=== PATIENT | male | born 1940 | race Caucasian/White ===

== ENCOUNTER 2016-09-03 15:46 | Emergency (ER) | payer OTHER, MEDICARE ==
[~2016-09-03] VITALS: Ht 180.3 cm; Wt 85.0 kg
[~2016-09-03 15:46] MED LIST: (None)3.5 GM OP; AMLODIPINE5 MG PO; AMOX/K CLAV875 M1 PO; AMOXICILLIN500 MG PO; ASPIRIN LOW DOS81 M2 PO; ATENOLOL50 MG PO; BACTRIM DS1 TAB PO; C 250 PO; CEPHALEXIN500 MG PO; CLEOCIN300 MG PO; FISH OIL1000 MG PO; FLEXERIL PO; GENTAMICIN15 ML/BTL OP; HYDROCHLOROT25 MG PO; INDOCIN25 MG PO; LIPITOR40 M1 PO; LOTRISONE CREAM15 GM EX; METOPROL TAR100 MG PO; MORPHINE SUL30 M3 PO; NAPROSYN500 MG PO; NORCO1 TA1 PO; ULTRAM50 M1 PO; ZESTRIL/PRINIV2.5 MG PO; ZESTRIL10 M1 PO; ZOHYDRO ER10 MG PO
[2016-09-03] MEDS ORDERED: METOPROL TAR25 M1 PO (17:15)
[2016-09-03 17:17] LABS: HEMOGLOBIN 14.9 g/dl (14.0-18.0); IMMATURE GRANULOCYTES 0.4 % (0.0-1.0); MEAN CELL VOLUME 83.7 fL CALC (80.0-100.0); MEAN CORPUSCULAR HGB 28.3 pG CALC (26.0-32.0); MEAN CORPUSCULAR HGB CONC 33.9 g/L CALC (32.0-36.0); NEUT# 4.79 thou/uL (1.82-7.42); RED BLOOD COUNT 5.26 mill/uL (4.70-6.10); RED CELL DISTRI WIDTH 15.9 % (11.5-15.5)
[2016-09-03] MEDS ORDERED: FISH OIL1000 MG PO (17:17)
[2016-09-03 17:32] LABS: ALBUMIN 4.2 g/dL (3.2-5.0); ALKALINE PHOSPHATASE 41 u/l (38-126); ANION GAP 16 (6-22 (CALC)); BILIRUBIN, TOTAL 0.6 mg/dL (0.0-1.4); BUN 13 mg/dL (8-23); BUN/CREATININE RATIO 13 (12-20 (CALC)); CARBON DIOXIDE 23 mmol/l (22-30); CHLORIDE 100 mmol/l (95-108); GFR > 60 ML/MIN (>=60 (CALC)); GFR FOR AFR.AMER. > 60 ML/MIN (>=60 (CALC)); GLUCOSE 83 mg/dL (82-115); POTASSIUM 4.4 mmol/l (3.5-5.1); SGOT/AST 42 u/l (19-48); SGPT/ALT 34 u/l (11-66); SODIUM 135 mmol/l (137-146); TOTAL PROTEIN 6.9 g/dL (6.3-8.2)
[2016-09-03] MEDS ORDERED: LEVAQUIN750 MG PO (17:43)
[2016-09-03] MEDS ORDERED: PREDNISONE50 MG PO (17:43)
[2016-09-03] MEDS ORDERED: TESSALON PER100 MG PO (17:43)
[2016-09-03] MEDS ORDERED: VENTOLIN HFA IN (17:43)
[2016-09-03 17:46] VITALS: BP 155/69
== END 2016-09-03 17:53 | disposition home or self-care (01) | DRG 203 ==
LOC: ED 15:46
PROVIDERS: Emergency Medicine
DX: J20.9 Acute bronchitis, unspecified (principal); I10 Essential (primary) hypertension; F43.10 Post-traumatic stress disorder, unspecified; Z95.2 Presence of prosthetic heart valve; G89.29 Other chronic pain; M54.9 Dorsalgia, unspecified

== ENCOUNTER 2018-05-31 13:54 | Emergency (ER) | payer MEDICARE ==
[~2018-05-31] VITALS: Ht 180.3 cm; Wt 80.9 kg
[~2018-05-31 13:54] MED LIST changes: +LEVAQUIN750 MG PO; +METOPROL TAR25 M1 PO; +PREDNISONE50 MG PO; +TESSALON PER100 MG PO; +VENTOLIN HFA IN
[2018-05-31] MEDS ORDERED: AMOX/K CLAV875 M1 PO (14:47)
[2018-05-31] MEDS ORDERED: FLOXIN OTIC0.3 % AU (14:47)
[2018-05-31 15:00] VITALS: BP 142/87
== END 2018-05-31 15:00 | disposition home or self-care (01) ==
LOC: ED 13:54
DX: H66.92 Otitis media, unspecified, left ear (principal); I10 Essential (primary) hypertension

== ENCOUNTER 2018-12-27 11:48 | Emergency (ER) | payer OTHER, MEDICARE ==
[~2018-12-27] VITALS: Ht 180.3 cm; Wt 85.0 kg
[~2018-12-27 11:48] MED LIST changes: +FLOXIN OTIC0.3 % AU
[2018-12-27] MEDS ORDERED: HYDRALAZINE10 M2 PO (12:05)
[2018-12-27] MEDS ORDERED: CEPHALEXIN500 M1 PO (14:27)
[2018-12-27] MEDS ORDERED: ROBITUSSIN AC10 ML PO (14:27)
[2018-12-27] MEDS ORDERED: CORTISPORIN OTI10 ML AU (14:31)
[2018-12-27 14:35] VITALS: BP 159/74
== END 2018-12-27 14:35 | disposition home or self-care (01) | DRG 153 ==
LOC: ED 11:48
DX: J06.9 Acute upper respiratory infection, unspecified (principal); M79.652 Pain in left thigh; I10 Essential (primary) hypertension; Z95.2 Presence of prosthetic heart valve

== ENCOUNTER 2019-01-14 11:04 | Emergency (ER) | payer OTHER, MEDICARE ==
[~2019-01-14] VITALS: Ht 180.3 cm; Wt 85.4 kg
[~2019-01-14 11:04] MED LIST changes: +CEPHALEXIN500 M1 PO; +CORTISPORIN OTI10 ML AU; +HYDRALAZINE10 M2 PO; +ROBITUSSIN AC10 ML PO
[2019-01-14] MEDS ORDERED: CHERATUSSIN PO (11:36)
[2019-01-14] MEDS ORDERED: DOXYCYC MONO100 M2 PO (11:36)
[2019-01-14] MEDS ORDERED: FLONASE AL50 MCG/ACT (11:36)
[2019-01-14 12:08] VITALS: BP 155/82
== END 2019-01-14 12:08 | disposition home or self-care (01) | DRG 153 ==
LOC: ED 11:04
DX: J06.9 Acute upper respiratory infection, unspecified (principal); I10 Essential (primary) hypertension; Z79.82 Long term (current) use of aspirin; Z95.2 Presence of prosthetic heart valve

== ENCOUNTER 2019-05-02 | Emergency (ER) | payer OTHER, MEDICARE ==
[~2019-05-02] MED LIST changes: +CHERATUSSIN PO; +DOXYCYC MONO100 M2 PO; +FLONASE AL50 MCG/ACT
[2019-05-02 02:36] LABS: ALBUMIN 4.6 g/dL (3.2-5.0); ALKALINE PHOSPHATASE 43 u/l (38-126); ANION GAP 14 (6-22 (CALC)); BUN 18 mg/dL (8-23); BUN/CREATININE RATIO 16 (12-20 (CALC)); CARBON DIOXIDE 23 mmol/l (22-30); CHLORIDE 102 mmol/l (95-108); CREATININE 1.1 mg/dL (0.7-1.3); GFR > 60 ML/MIN (>=60 (CALC)); GFR FOR AFR.AMER. > 60 ML/MIN (>=60 (CALC)); POTASSIUM 4.6 mmol/l (3.5-5.1); SGOT/AST 35 u/l (19-48); SODIUM 134 mmol/l (137-146); TOTAL PROTEIN 7.4 g/dL (6.3-8.2)
[2019-05-02 02:43] LABS: BARBITURATES NEGATIVE (NEGATIVE); COCAINE NEGATIVE (NEGATIVE); METHADONE NEGATIVE (NEGATIVE); OXCYCODONE NEGATIVE (NEGATIVE); TETRAHYDROCANNABIONOL NEGATIVE (NEGATIVE); TRICYLIC ANTIDEPRESSANTS NEGATIVE (NEGATIVE)
[2019-05-02 02:48] LABS: MYOGLOBIN 128 ng/mL (0 - 121)
[2019-05-02 02:49] LABS: URINE BILIRUBIN - DIPSTICK NEGATIVE (NEGATIVE); URINE BLOOD DIPSTICK TRACE-INTACT (NEGATIVE); URINE COLOR YELLOW; URINE GLUCOSE - DIPSTICK NEGATIVE (NEGATIVE); URINE KETONE NEGATIVE (NEGATIVE); URINE LEUK ESTERASE NEGATIVE (NEGATIVE); URINE NITRITE - DIPSTICK NEGATIVE (Negative); URINE PROTEIN - DIPSTICK 100 mg/dL (NEG-TRACE); URINE UROBILINOGEN - DIPSTICK 0.2 E.U./dL (0.2)
[2019-05-02 02:50] LABS: BILIRUBIN, TOTAL 0.9 mg/dL (0.0-1.4); HEMATOCRIT 49.6 % (39.0-50.0); HEMOGLOBIN 16.8 g/dl (14.0-18.0); IMMATURE GRANULOCYTES 0.4 % (0.0-5.0); MEAN CELL VOLUME 87.3 fL CALC (80.0-100.0); MEAN CORPUSCULAR HGB 29.6 pG CALC (26.0-32.0); MEAN CORPUSCULAR HGB CONC 33.9 g/L CALC (32.0-36.0); NEUT# 8.44 thou/uL (1.82-7.42); RED BLOOD COUNT 5.68 mill/uL (4.70-6.10); RED CELL DISTRI WIDTH 14.7 % (11.5-15.5)
[2019-05-02 02:54] LABS: URINE BACTERIA RARE hpf; URINE EPITHELIAL CELLS FEW EPI/hpf (0-FEW)
== END 2019-05-02 04:27 | disposition home or self-care (01) | DRG 305 ==
PROVIDERS: Emergency Medicine
DX: I10 Essential (primary) hypertension (principal); Z95.2 Presence of prosthetic heart valve

== ENCOUNTER 2020-09-22 18:23 | Emergency (ER) | payer OTHER, MEDICARE ==
[~2020-09-22] VITALS: Ht 180.3 cm; Wt 73.6 kg
[~2020-09-22 18:23] MED LIST changes: -HYDRALAZINE10 M2 PO; +HYDRALAZINE100 MG PO; +LISINOPRIL40 MG PO; -ZESTRIL10 M1 PO
[2020-09-22] MEDS ORDERED: ARIPIPRAZOLE5 MG PO (19:23)
[2020-09-22] MEDS ORDERED: CARVEDILOL6.25 MG PO (19:24)
[2020-09-22] MEDS ORDERED: DULOXETINE HCL30 MG PO (19:25)
[2020-09-22] MEDS ORDERED: SOD CHLORIDE1 G2 PO (19:26)
[2020-09-22] MEDS ORDERED: SOD CHLORIDE1 GM PO (19:27)
[2020-09-22 19:44] LABS: HEMATOCRIT 43.3 % (39.0-50.0); HEMOGLOBIN 14.2 g/dl (14.0-18.0); IMMATURE GRANULOCYTES 0.2 % (0.0-5.0); MEAN CELL VOLUME 83.9 fL CALC (80.0-100.0); MEAN CORPUSCULAR HGB 27.5 pG CALC (26.0-32.0); MEAN CORPUSCULAR HGB CONC 32.8 g/dL CAL (32.0-36.0); NEUT# 4.67 thou/uL (1.82-7.42); RED BLOOD COUNT 5.16 mill/uL (4.70-6.10); RED CELL DISTRI WIDTH 13.1 % (11.5-15.5)
[2020-09-22 19:51] LABS: ALBUMIN 3.8 g/dL (3.2-5.0); ALKALINE PHOSPHATASE 79 u/l (38-126); ANION GAP 13 (6-22 (CALC)); BILIRUBIN, TOTAL 0.4 mg/dL (0.0-1.4); BUN 23 mg/dL (8-23); BUN/CREATININE RATIO 26 (12-20 (CALC)); CARBON DIOXIDE 26 mmol/l (22-30); CHLORIDE 95 mmol/l (95-108); CREATININE 0.9 mg/dL (0.7-1.3); GFR > 60 ML/MIN (>=60 (CALC)); GFR FOR AFR.AMER. > 60 ML/MIN (>=60 (CALC)); LIPASE 132 u/l (23-300); MAGNESIUM 2.1 mg/dL (1.6-2.3); POTASSIUM 4.5 mmol/l (3.5-5.1); SGOT/AST 25 u/l (19-48); SODIUM 130 mmol/l (137-146)
[2020-09-22 20:21] LABS: TSH, 3RD GENERATION 1.67 uIU/mL (0.47 - 4.68)
[2020-09-22 20:22] LABS: ACT PARTIAL THROMBO TIME 31.9 SECONDS (20.0-32.5); PROTHROMBIN TIME 10.7 SECONDS (9.0-12.5)
[2020-09-22 21:10] LABS: URINE BILIRUBIN - DIPSTICK NEGATIVE (NEGATIVE); URINE BLOOD DIPSTICK NEGATIVE (NEGATIVE); URINE COLOR YELLOW; URINE GLUCOSE - DIPSTICK NEGATIVE (NEGATIVE); URINE KETONE NEGATIVE (NEGATIVE); URINE LEUK ESTERASE NEGATIVE (NEGATIVE); URINE PROTEIN - DIPSTICK 30 mg/dL (NEG-TRACE); URINE SPECIFIC GRAVITY >=1.030; URINE UROBILINOGEN - DIPSTICK 0.2 E.U./dL (0.2)
[2020-09-22 21:11] LABS: URINE NITRITE - DIPSTICK NEGATIVE (Negative)
[2020-09-22 21:12] LABS: URINE RBC 0-2 RBC/hpf (0-5); URINE WBC 0-2 WBC/hpf (0-5)
[2020-09-22 21:40] VITALS: BP 171/72
== END 2020-09-22 21:50 | disposition home or self-care (01) | DRG 641 ==
LOC: ED 18:23
PROVIDERS: Emergency Medicine
DX: E87.1 Hypo-osmolality and hyponatremia (principal); F19.239 Other psychoactive substance dependence with withdrawal, unspecified; R42 Dizziness and giddiness; I10 Essential (primary) hypertension; Z95.2 Presence of prosthetic heart valve; Z20.822 Contact with and (suspected) exposure to COVID-19

== ENCOUNTER 2020-10-01 13:38 | Emergency (ER) | payer OTHER, MEDICARE ==
[~2020-10-01] VITALS: Ht 180.3 cm; Wt 75.0 kg
[~2020-10-01 13:38] MED LIST changes: +ARIPIPRAZOLE5 MG PO; +CARVEDILOL6.25 MG PO; +DULOXETINE HCL30 MG PO; +SOD CHLORIDE1 G2 PO; +SOD CHLORIDE1 GM PO
[2020-10-01] MEDS ORDERED: LIDOCAINE HCL VIS2 % PO (15:10)
[2020-10-01 15:28] VITALS: BP 130/72
== END 2020-10-01 15:28 | disposition home or self-care (01) | DRG 153 ==
LOC: ED 13:38
PROC: 3E1B78Z Irrigation of Ear using Irrigating Substance, Via Natural or Artificial Opening (ICD-10-PCS; principal; 2020-10-01)
PROC: 3E1B78Z Irrigation of Ear using Irrigating Substance, Via Natural or Artificial Opening (ICD-10-PCS; 2020-10-01)
DX: J02.9 Acute pharyngitis, unspecified (principal); R05 Cough; H61.23 Impacted cerumen, bilateral; I10 Essential (primary) hypertension; Z95.2 Presence of prosthetic heart valve; Z20.822 Contact with and (suspected) exposure to COVID-19

== ENCOUNTER 2020-10-08 16:58 | Emergency (ER) | payer OTHER, MEDICARE ==
[~2020-10-08] VITALS: Ht 180.3 cm; Wt 80.0 kg
[~2020-10-08 16:58] MED LIST changes: +LIDOCAINE HCL VIS2 % PO
[2020-10-08 17:53] LABS: HEMATOCRIT 38.6 % (39.0-50.0); HEMOGLOBIN 12.7 g/dl (14.0-18.0); IMMATURE GRANULOCYTES 0.3 % (0.0-5.0); MEAN CELL VOLUME 83.5 fL CALC (80.0-100.0); MEAN CORPUSCULAR HGB 27.5 pG CALC (26.0-32.0); MEAN CORPUSCULAR HGB CONC 32.9 g/dL CAL (32.0-36.0); NEUT# 4.48 thou/uL (1.82-7.42); RED BLOOD COUNT 4.62 mill/uL (4.70-6.10); RED CELL DISTRI WIDTH 13.8 % (11.5-15.5)
[2020-10-08 18:07] LABS: ALBUMIN 3.6 g/dL (3.2-5.0); ALKALINE PHOSPHATASE 69 u/l (38-126); AMYLASE 55 u/l (30-110); ANION GAP 10 (6-22 (CALC)); BILIRUBIN, TOTAL 0.3 mg/dL (0.0-1.4); BUN 24 mg/dL (8-23); BUN/CREATININE RATIO 24 (12-20 (CALC)); CARBON DIOXIDE 29 mmol/l (22-30); CHLORIDE 94 mmol/l (95-108); GFR > 60 ML/MIN (>=60 (CALC)); GFR FOR AFR.AMER. > 60 ML/MIN (>=60 (CALC)); LIPASE 47 u/l (23-300); POTASSIUM 4.4 mmol/l (3.5-5.1); SGOT/AST 24 u/l (19-48); SODIUM 128 mmol/l (137-146); TOTAL PROTEIN 7.1 g/dL (6.3-8.2)
[2020-10-08 18:33] LABS: ACT PARTIAL THROMBO TIME 31.6 SECONDS (20.0-32.5); PROTHROMBIN TIME 10.8 SECONDS (9.0-12.5)
[2020-10-08] MEDS ORDERED: MIRALAX17 GM PO (20:36)
[2020-10-08] MEDS ORDERED: DOXYCYCL HYC100 MG PO (20:36)
[2020-10-08 21:10] VITALS: BP 135/69
== END 2020-10-08 21:10 | disposition home or self-care (01) | DRG 195 ==
LOC: ED 16:58
DX: J18.9 Pneumonia, unspecified organism (principal); K59.00 Constipation, unspecified; I10 Essential (primary) hypertension; Z95.2 Presence of prosthetic heart valve
CPT/HCPCS: Q9967

== ENCOUNTER 2020-10-22 04:20 | Emergency (ER) | payer OTHER, MEDICARE ==
[~2020-10-22 04:20] MED LIST changes: +DOXYCYCL HYC100 MG PO; +MIRALAX17 GM PO
[2020-10-22] MEDS ORDERED: TYLENOL # 31 TA1 PO (05:58)
[2020-10-22 06:08] VITALS: BP 159/78
== END 2020-10-22 06:34 | disposition home or self-care (01) | DRG 605 ==
LOC: ED 04:20
DX: S41.111A Laceration without foreign body of right upper arm, initial encounter (principal); S51.811A Laceration without foreign body of right forearm, initial encounter; I10 Essential (primary) hypertension; W10.9XXA Fall (on) (from) unspecified stairs and steps, initial encounter; Y92.009 Unspecified place in unspecified non-institutional (private) residence as the place of occurrence of the external cause; Z95.2 Presence of prosthetic heart valve

== ENCOUNTER 2020-10-24 13:33 | Emergency (ER) | payer OTHER, MEDICARE ==
[~2020-10-24 13:33] MED LIST changes: +TYLENOL # 31 TA1 PO
[2020-10-24 16:14] VITALS: BP 160/82
== END 2020-10-24 16:20 | disposition home or self-care (01) | DRG 605 ==
LOC: ED 13:33
DX: S41.111A Laceration without foreign body of right upper arm, initial encounter (principal); S51.811A Laceration without foreign body of right forearm, initial encounter; I10 Essential (primary) hypertension; W10.9XXA Fall (on) (from) unspecified stairs and steps, initial encounter; Y92.009 Unspecified place in unspecified non-institutional (private) residence as the place of occurrence of the external cause; Z95.2 Presence of prosthetic heart valve

== ENCOUNTER 2020-10-26 15:25 | Emergency (ER) | payer OTHER, MEDICARE ==
[~2020-10-26] VITALS: Ht 180.3 cm; Wt 75.0 kg
[2020-10-26 17:39] VITALS: BP 127/58
== END 2020-10-26 18:15 | disposition home or self-care (01) | DRG 195 ==
LOC: ED 15:25
DX: J18.9 Pneumonia, unspecified organism (principal); I10 Essential (primary) hypertension; Z95.2 Presence of prosthetic heart valve; Z20.822 Contact with and (suspected) exposure to COVID-19

== ENCOUNTER 2020-11-08 22:27 | Observation (INO) | payer OTHER, MEDICARE ==
[~2020-11-08] VITALS: Ht 180.3 cm; Wt 81.0 kg
--- NOTE | 2020-11-08 22:45 | NUR ---
PATIENT TO ROOM 8 VIA WHEELCHAIR. BEDSIDE TRIAGE COMPLETED
[2020-11-08 23:53] LABS: HEMOGLOBIN 10.9 g/dl (14.0-18.0); IMMATURE GRANULOCYTES 0.5 % (0.0-5.0); MEAN CELL VOLUME 82.5 fL CALC (80.0-100.0); MEAN CORPUSCULAR HGB 27.7 pG CALC (26.0-32.0); MEAN CORPUSCULAR HGB CONC 33.5 g/dL CAL (32.0-36.0); NEUT# 5.26 thou/uL (1.82-7.42); RED BLOOD COUNT 3.94 mill/uL (4.70-6.10); RED CELL DISTRI WIDTH 15.4 % (11.5-15.5)
[2020-11-09 00:10] LABS: D-DIMER 3.6 mg/L (0.19-0.60)
[2020-11-09 00:16] LABS: ACT PARTIAL THROMBO TIME 33.2 SECONDS (20.0-32.5); INTERNATIONAL NORMALIZED RATIO 1.1 RATIO (0.7-1.3)
[2020-11-09 00:17] LABS: HEMATOCRIT 32.5 % (39.0-50.0)
[2020-11-09 00:30] LABS: ALBUMIN 3.2 g/dL (3.2-5.0); ALKALINE PHOSPHATASE 81 u/l (38-126); ANION GAP 8 (6-22 (CALC)); BUN 19 mg/dL (8-23); BUN/CREATININE RATIO 23 (12-20 (CALC)); CARBON DIOXIDE 30 mmol/l (22-30); CHLORIDE 91 mmol/l (95-108); CREATININE 0.9 mg/dL (0.7-1.3); GFR > 60 ML/MIN (>=60 (CALC)); GFR FOR AFR.AMER. > 60 ML/MIN (>=60 (CALC)); SGOT/AST 24 u/l (19-48); SODIUM 125 mmol/l (137-146); TOTAL PROTEIN 6.5 g/dL (6.3-8.2)
[2020-11-09 00:32] LABS: BILIRUBIN, TOTAL 0.8 mg/dL (0.0-1.4)
[2020-11-09 00:49] LABS: LIPASE 32 u/l (23-300)
[2020-11-09 01:37] VITALS: BP 175/80
[2020-11-09 01:51] LABS: URINE BILIRUBIN - DIPSTICK NEGATIVE (NEGATIVE); URINE BLOOD DIPSTICK NEGATIVE (NEGATIVE); URINE COLOR YELLOW; URINE GLUCOSE - DIPSTICK NEGATIVE (NEGATIVE); URINE KETONE NEGATIVE (NEGATIVE); URINE LEUK ESTERASE NEGATIVE (NEGATIVE); URINE PROTEIN - DIPSTICK NEGATIVE (NEG-TRACE); URINE SPECIFIC GRAVITY 1.015; URINE UROBILINOGEN - DIPSTICK 0.2 E.U./dL (0.2)
[2020-11-09 01:52] LABS: URINE NITRITE - DIPSTICK NEGATIVE (Negative)
[2020-11-09 02:37] VITALS: BP 189/87
[2020-11-09 05:00] VITALS: BP 179/81
--- NOTE | 2020-11-09 06:17 | NUR ---
PT CONTINUES TO REFUSE FURTHER COVID TESTING. Serena RENDON APRN MADE AWARE.
--- NOTE | 2020-11-09 06:25 | NUR ---
PT RESTING IN BED. AT BEDSIDE. DENIES CURRENT NEEDS. CALL [place] WITHIN REACH, AGREES TO CALL PRN.
[2020-11-09] MEDS ORDERED: DULOXETINE HYDR40 MG PO (07:40)
[2020-11-09] MEDS ORDERED: SOD CHLORIDE1 GM PO (07:40)
[2020-11-09] MEDS ORDERED: ABILIFY5 MG PO (07:41)
[2020-11-09 07:44] VITALS: BP 147/67
--- NOTE | 2020-11-09 07:44 | NUR ---
PATIENT IN BED IN ED OVERFLOW. PATIENT IS ALERT AND ORIENTED AND IS AT BEDSIDE. PATIENT DENIES ANY PAIN AT THIS TIME. HEALTH SAFETY AND ENVIRONMENT MANAGER DONE SEE INTERVENTIONS. SIDERAILS ARE UP CALL LIGHT WITHIN REACH. PATIENT LUNG FIES ARE DIMINISHED AND PATIENT BEING MONITORED ON TELE AT THIS TIME. PATIENT HAS SKIN TEAR THAT WERE PRESENT UPON ADMISSION AND IS CURRENTLY WRAPPED. SIDERAILS ARE UP CALL LIGHT IS WITHIN REACH.
[2020-11-09] MEDS ORDERED: Levaquin PO (11:01)
[2020-11-09 11:30] VITALS: BP 147/67
--- NOTE | 2020-11-09 11:38 | NUR ---
PATIENT DC AT THIS TIME. PATIENT EDUCATION GONE OVER WITH AND PATIENT AND VERBALLY UNDERSTANDS DC AT THIS TIME.
--- NOTE | 2020-11-09 11:47 | NUR ---
Discharge instructions given. Patient verbalizes understanding of same. Discharged in stable condition via Wheelchair to Home with family. All belongings sent with pt.
== END 2020-11-09 11:40 | disposition home or self-care (01) | DRG 194 ==
LOC: ED 22:27 → ED-I 11-09 02:05 → ED 11-09 02:34 → ED-I 11-09 02:35
PROVIDERS: ADMIT Hospitalist; ATTEND Hospitalist
DX: J18.9 Pneumonia, unspecified organism (principal); E87.1 Hypo-osmolality and hyponatremia; I10 Essential (primary) hypertension; I71.2 Thoracic aortic aneurysm, without rupture; Z95.3 Presence of xenogenic heart valve; Z20.822 Contact with and (suspected) exposure to COVID-19
CPT/HCPCS: J0131; Q9967

== ENCOUNTER 2020-11-11 17:25 | Emergency (ER) | payer OTHER, MEDICARE ==
[~2020-11-11] VITALS: Ht 180.3 cm; Wt 79.5 kg
[~2020-11-11 17:25] MED LIST changes: +ABILIFY5 MG PO; +DULOXETINE HYDR40 MG PO; +Levaquin PO
[2020-11-11 18:50] LABS: HEMATOCRIT 34.5 % (39.0-50.0); HEMOGLOBIN 11.2 g/dl (14.0-18.0); IMMATURE GRANULOCYTES 0.5 % (0.0-5.0); MEAN CELL VOLUME 82.9 fL CALC (80.0-100.0); MEAN CORPUSCULAR HGB 26.9 pG CALC (26.0-32.0); MEAN CORPUSCULAR HGB CONC 32.5 g/dL CAL (32.0-36.0); NEUT# 5.09 thou/uL (1.82-7.42); RED BLOOD COUNT 4.16 mill/uL (4.70-6.10); RED CELL DISTRI WIDTH 15.1 % (11.5-15.5)
[2020-11-11 19:07] LABS: ANION GAP 11 (6-22 (CALC)); BUN 19 mg/dL (8-23); BUN/CREATININE RATIO 21 (12-20 (CALC)); CARBON DIOXIDE 26 mmol/l (22-30); CHLORIDE 91 mmol/l (95-108); CREATININE 0.9 mg/dL (0.7-1.3); GFR > 60 ML/MIN (>=60 (CALC)); GFR FOR AFR.AMER. > 60 ML/MIN (>=60 (CALC)); SODIUM 124 mmol/l (137-146)
[2020-11-11 20:45] VITALS: BP 167/69
== END 2020-11-11 20:50 | disposition home or self-care (01) | DRG 194 ==
LOC: ED 17:25
PROVIDERS: Family Medicine
DX: J18.9 Pneumonia, unspecified organism (principal); E87.1 Hypo-osmolality and hyponatremia; I10 Essential (primary) hypertension; Z95.2 Presence of prosthetic heart valve; Z20.822 Contact with and (suspected) exposure to COVID-19

== ENCOUNTER 2020-11-17 08:43 | Emergency (ER) | payer OTHER, MEDICARE ==
[~2020-11-17] VITALS: Ht 180.3 cm; Wt 77.1 kg
[2020-11-17 09:19] LABS: HEMATOCRIT 33.5 % (39.0-50.0); HEMOGLOBIN 11.3 g/dl (14.0-18.0); IMMATURE GRANULOCYTES 0.4 % (0.0-5.0); MEAN CELL VOLUME 81.7 fL CALC (80.0-100.0); MEAN CORPUSCULAR HGB 27.6 pG CALC (26.0-32.0); MEAN CORPUSCULAR HGB CONC 33.7 g/dL CAL (32.0-36.0); NEUT# 5.69 thou/uL (1.82-7.42); RED BLOOD COUNT 4.1 mill/uL (4.70-6.10); RED CELL DISTRI WIDTH 15.3 % (11.5-15.5)
[2020-11-17 09:30] LABS: ALBUMIN 3.4 g/dL (3.2-5.0); ALKALINE PHOSPHATASE 78 u/l (38-126); ANION GAP 13 (6-22 (CALC)); BILIRUBIN, TOTAL 0.6 mg/dL (0.0-1.4); BUN 18 mg/dL (8-23); BUN/CREATININE RATIO 20 (12-20 (CALC)); CARBON DIOXIDE 26 mmol/l (22-30); CHLORIDE 91 mmol/l (95-108); CREATININE 0.9 mg/dL (0.7-1.3); GFR > 60 ML/MIN (>=60 (CALC)); GFR FOR AFR.AMER. > 60 ML/MIN (>=60 (CALC)); POTASSIUM 4.1 mmol/l (3.5-5.1); SGOT/AST 31 u/l (19-48); SODIUM 125 mmol/l (137-146); TOTAL PROTEIN 6.5 g/dL (6.3-8.2)
[2020-11-17 10:26] VITALS: BP 164/89
== END 2020-11-17 10:40 | disposition left against medical advice (07) | DRG 313 ==
LOC: ED 08:43
PROVIDERS: Family Medicine
DX: R07.9 Chest pain, unspecified (principal); I10 Essential (primary) hypertension; Z91.19 Patient's noncompliance with other medical treatment and regimen; Z95.2 Presence of prosthetic heart valve; Z20.822 Contact with and (suspected) exposure to COVID-19

== ENCOUNTER 2020-12-11 00:07 | Emergency (ER) | payer OTHER, MEDICARE ==
[~2020-12-11] VITALS: Ht 180.3 cm; Wt 75.0 kg
[2020-12-11 00:49] LABS: IMMATURE GRANULOCYTES 0.9 % (0.0-5.0); MEAN CELL VOLUME 83.9 fL CALC (80.0-100.0); MEAN CORPUSCULAR HGB 27.7 pG CALC (26.0-32.0); MEAN CORPUSCULAR HGB CONC 33.1 g/dL CAL (32.0-36.0); NEUT# 6.23 thou/uL (1.82-7.42); RED BLOOD COUNT 3.1 mill/uL (4.70-6.10); RED CELL DISTRI WIDTH 14.7 % (11.5-15.5)
[2020-12-11 00:50] LABS: HEMOGLOBIN 8.6 g/dl (14.0-18.0)
[2020-12-11 01:22] LABS: ALBUMIN 3.2 g/dL (3.2-5.0); ALKALINE PHOSPHATASE 105 u/l (38-126); ANION GAP 10 (6-22 (CALC)); BILIRUBIN, TOTAL 0.5 mg/dL (0.0-1.4); BUN 27 mg/dL (8-23); BUN/CREATININE RATIO 29 (12-20 (CALC)); CARBON DIOXIDE 26 mmol/l (22-30); CHLORIDE 95 mmol/l (95-108); CREATININE 0.9 mg/dL (0.7-1.3); GFR > 60 ML/MIN (>=60 (CALC)); GFR FOR AFR.AMER. > 60 ML/MIN (>=60 (CALC)); POTASSIUM 4.6 mmol/l (3.5-5.1); SGOT/AST 24 u/l (19-48); SODIUM 127 mmol/l (137-146); TOTAL PROTEIN 6.2 g/dL (6.3-8.2)
[2020-12-11 01:34] LABS: MYOGLOBIN 39 ng/mL (0 - 121)
[2020-12-11 02:54] LABS: URINE BILIRUBIN - DIPSTICK NEGATIVE (NEGATIVE); URINE BLOOD DIPSTICK TRACE-INTACT (NEGATIVE); URINE COLOR YELLOW; URINE GLUCOSE - DIPSTICK NEGATIVE (NEGATIVE); URINE KETONE NEGATIVE (NEGATIVE); URINE LEUK ESTERASE NEGATIVE (NEGATIVE); URINE PROTEIN - DIPSTICK NEGATIVE (NEG-TRACE); URINE SPECIFIC GRAVITY 1.015; URINE UROBILINOGEN - DIPSTICK 0.2 E.U./dL (0.2)
[2020-12-11 02:56] LABS: URINE NITRITE - DIPSTICK NEGATIVE (Negative)
[2020-12-11] MEDS ORDERED: FEOSOL45 MG PO (03:20)
[2020-12-11] MEDS ORDERED: NAPROXEN500 MG PO (03:24)
[2020-12-11 03:53] VITALS: BP 147/68
[2020-12-11] MEDS ORDERED: MIRALAX17 GM PO (04:02)
== END 2020-12-11 03:55 | disposition home or self-care (01) | DRG 812 ==
LOC: ED 00:07
PROVIDERS: Emergency Medicine
DX: D64.9 Anemia, unspecified (principal); E87.1 Hypo-osmolality and hyponatremia; K59.00 Constipation, unspecified; I10 Essential (primary) hypertension; Z95.2 Presence of prosthetic heart valve
CPT/HCPCS: Q9967

== ENCOUNTER 2021-01-18 23:23 | Observation (INO) | payer OTHER, MEDICARE ==
[~2021-01-18] VITALS: Ht 180.3 cm; Wt 74.0 kg
[~2021-01-18 23:23] MED LIST changes: +FEOSOL45 MG PO; +NAPROXEN500 MG PO
[2021-01-19] VITALS (7 sets, daily range): BP systolic 144–167; BP diastolic 62–85
[2021-01-19 00:17] LABS: HEMATOCRIT 22.4 % (39.0-50.0); IMMATURE GRANULOCYTES 0.6 % (0.0-5.0); MEAN CORPUSCULAR HGB 28.6 pG CALC (26.0-32.0); MEAN CORPUSCULAR HGB CONC 35.7 g/dL CAL (32.0-36.0); NEUT# 3.67 thou/uL (1.82-7.42); RED BLOOD COUNT 2.8 mill/uL (4.70-6.10); RED CELL DISTRI WIDTH 13.8 % (11.5-15.5)
[2021-01-19 00:33] LABS: ACT PARTIAL THROMBO TIME 35.1 SECONDS (20.0-32.5); INTERNATIONAL NORMALIZED RATIO 1.1 RATIO (0.7-1.3); PROTHROMBIN TIME 11.1 SECONDS (9.0-12.5)
[2021-01-19 00:34] LABS: ALBUMIN 3.7 g/dL (3.2-5.0); ALKALINE PHOSPHATASE 109 u/l (38-126); ANION GAP 13 (6-22 (CALC)); BILIRUBIN, TOTAL 0.5 mg/dL (0.0-1.4); BUN 23 mg/dL (8-23); BUN/CREATININE RATIO 26 (12-20 (CALC)); CARBON DIOXIDE 22 mmol/l (22-30); CHLORIDE 95 mmol/l (95-108); CREATININE 0.9 mg/dL (0.7-1.3); GFR > 60 ML/MIN (>=60 (CALC)); GFR FOR AFR.AMER. > 60 ML/MIN (>=60 (CALC)); LIPASE 55 u/l (23-300); POTASSIUM 4.6 mmol/l (3.5-5.1); SGOT/AST 32 u/l (19-48); SODIUM 125 mmol/l (137-146); TOTAL PROTEIN 7.1 g/dL (6.3-8.2)
[2021-01-19 01:02] LABS: URINE BILIRUBIN - DIPSTICK NEGATIVE (NEGATIVE); URINE BLOOD DIPSTICK NEGATIVE (NEGATIVE); URINE COLOR YELLOW; URINE GLUCOSE - DIPSTICK NEGATIVE (NEGATIVE); URINE KETONE NEGATIVE (NEGATIVE); URINE LEUK ESTERASE NEGATIVE (NEGATIVE); URINE NITRITE - DIPSTICK NEGATIVE (Negative); URINE PROTEIN - DIPSTICK NEGATIVE (NEG-TRACE); URINE UROBILINOGEN - DIPSTICK 0.2 E.U./dL (0.2)
[2021-01-19 05:33] LABS: HEMATOCRIT 24.3 % (39.0-50.0); HEMOGLOBIN 8.6 g/dl (14.0-18.0)
[2021-01-19] MEDS ORDERED: MULTIVITAMI1 PO (09:45)
[2021-01-19] MEDS ORDERED: NAPROXEN500 MG PO (09:48)
[2021-01-19] MEDS ORDERED: COLACE100 MG PO (09:51)
[2021-01-19] MEDS ORDERED: IRON (FERROUS S50 MG PO (09:53)
[2021-01-20 00:22] VITALS: BP 149/82
[2021-01-20 04:10] VITALS: BP 145/77
[2021-01-20 05:49] LABS: HEMOGLOBIN 8.2 g/dl (14.0-18.0); MEAN CELL VOLUME 79.3 fL CALC (80.0-100.0); MEAN CORPUSCULAR HGB 28.3 pG CALC (26.0-32.0); MEAN CORPUSCULAR HGB CONC 35.7 g/dL CAL (32.0-36.0); RED BLOOD COUNT 2.9 mill/uL (4.70-6.10); RED CELL DISTRI WIDTH 13.8 % (11.5-15.5)
[2021-01-20 06:08] LABS: ANION GAP 11 (6-22 (CALC)); BUN 31 mg/dL (8-23); BUN/CREATININE RATIO 34 (12-20 (CALC)); CARBON DIOXIDE 23 mmol/l (22-30); CHLORIDE 98 mmol/l (95-108); CREATININE 0.9 mg/dL (0.7-1.3); GFR > 60 ML/MIN (>=60 (CALC)); GFR FOR AFR.AMER. > 60 ML/MIN (>=60 (CALC)); MAGNESIUM 1.9 mg/dL (1.6-2.3); POTASSIUM 4.2 mmol/l (3.5-5.1); SODIUM 128 mmol/l (137-146)
[2021-01-20 07:53] VITALS: BP 171/86
[2021-01-20 11:34] VITALS: BP 154/78
[2021-01-20 16:20] VITALS: BP 171/84
[2021-01-20 19:00] VITALS: BP 161/76
[2021-01-21 00:02] VITALS: BP 170/74
[2021-01-21 03:57] VITALS: BP 154/81
[2021-01-21 05:03] LABS: HEMOGLOBIN 8.4 g/dl (14.0-18.0); MEAN CELL VOLUME 80.8 fL CALC (80.0-100.0); MEAN CORPUSCULAR HGB 28.3 pG CALC (26.0-32.0); RED BLOOD COUNT 2.97 mill/uL (4.70-6.10); RED CELL DISTRI WIDTH 13.7 % (11.5-15.5)
[2021-01-21 05:38] LABS: ANION GAP 11 (6-22 (CALC)); BUN 28 mg/dL (8-23); BUN/CREATININE RATIO 29 (12-20 (CALC)); CARBON DIOXIDE 27 mmol/l (22-30); CHLORIDE 94 mmol/l (95-108); GFR > 60 ML/MIN (>=60 (CALC)); GFR FOR AFR.AMER. > 60 ML/MIN (>=60 (CALC)); MAGNESIUM 1.9 mg/dL (1.6-2.3); POTASSIUM 4.6 mmol/l (3.5-5.1); SODIUM 128 mmol/l (137-146)
[2021-01-21 08:44] VITALS: BP 137/75
[2021-01-21 10:52] VITALS: BP 120/61
[2021-01-21] MEDS ORDERED: LASIX20 MG PO (10:55)
[2021-01-21] MEDS ORDERED: ZITHROMAX250 MG PO (10:55)
[2021-01-21] MEDS ORDERED: OMNICEF300 MG PO (10:55)
== END 2021-01-21 14:22 | disposition home or self-care (01) | DRG 292 ==
LOC: ED 23:23 → ED-I 01-19 03:00 → ED 01-19 03:16 → MS2 01-19 03:17
PROVIDERS: Nurse Practitioner; ADMIT Hospitalist; ATTEND Hospitalist
PROC: 30233N1 Transfusion of Nonautologous Red Blood Cells into Peripheral Vein, Percutaneous Approach (ICD-10-PCS; principal; 2021-01-19)
DX: I11.0 Hypertensive heart disease with heart failure (principal); I50.9 Heart failure, unspecified; J91.8 Pleural effusion in other conditions classified elsewhere; E87.1 Hypo-osmolality and hyponatremia; R91.8 Other nonspecific abnormal finding of lung field; R09.02 Hypoxemia; D64.9 Anemia, unspecified; M25.552 Pain in left hip; I25.10 Atherosclerotic heart disease of native coronary artery without angina pectoris; Z95.2 Presence of prosthetic heart valve; Z20.822 Contact with and (suspected) exposure to COVID-19
CPT/HCPCS: G0378; P9016; Q9967

== ENCOUNTER 2021-01-29 10:26 | Emergency (ER) | payer OTHER, MEDICARE ==
[~2021-01-29] VITALS: Ht 180.3 cm; Wt 72.7 kg
[~2021-01-29 10:26] MED LIST changes: +COLACE100 MG PO; +IRON (FERROUS S50 MG PO; +LASIX20 MG PO; +MULTIVITAMI1 PO; +OMNICEF300 MG PO; +ZITHROMAX250 MG PO
[2021-01-29] MEDS ORDERED: AMOXICILLIN500 M2 PO (10:45)
[2021-01-29] MEDS ORDERED: CLOTRIM/BETA EX (10:50)
[2021-01-29] MEDS ORDERED: NYSTATIN MT (10:51)
[2021-01-29 11:25] VITALS: BP 157/73
== END 2021-01-29 11:25 | disposition home or self-care (01) | DRG 153 ==
LOC: ED 10:26
DX: H66.91 Otitis media, unspecified, right ear (principal); K12.0 Recurrent oral aphthae; I10 Essential (primary) hypertension; Z95.2 Presence of prosthetic heart valve

== ENCOUNTER 2021-02-14 13:44 | Emergency (ER) | payer OTHER, MEDICARE ==
[~2021-02-14] VITALS: Ht 180.3 cm; Wt 75.0 kg
[~2021-02-14 13:44] MED LIST changes: +AMOXICILLIN500 M2 PO; +CLOTRIM/BETA EX; +NYSTATIN MT
[2021-02-14] MEDS ORDERED: AMOXICILLIN500 M2 PO (15:47)
[2021-02-14 16:45] VITALS: BP 171/73
== END 2021-02-14 16:20 | disposition home or self-care (01) | DRG 153 ==
LOC: ED 13:44
DX: J02.9 Acute pharyngitis, unspecified (principal); I10 Essential (primary) hypertension; Z20.822 Contact with and (suspected) exposure to COVID-19

== ENCOUNTER 2021-03-15 16:09 | Emergency (ER) | payer OTHER, MEDICARE ==
[~2021-03-15] VITALS: Ht 180.3 cm; Wt 72.7 kg
[2021-03-15 17:08] LABS: HEMATOCRIT 24.6 % (39.0-50.0); HEMOGLOBIN 8.1 g/dl (14.0-18.0); IMMATURE GRANULOCYTES 0.8 % (0.0-5.0); MEAN CORPUSCULAR HGB CONC 32.9 g/dL CAL (32.0-36.0); NEUT# 4.77 thou/uL (1.82-7.42); RED BLOOD COUNT 2.79 mill/uL (4.70-6.10); RED CELL DISTRI WIDTH 15.5 % (11.5-15.5)
[2021-03-15 17:13] LABS: MEAN CELL VOLUME 88.2 fL CALC (80.0-100.0)
[2021-03-15 17:23] LABS: ALBUMIN 3.8 g/dL (3.2-5.0); ALKALINE PHOSPHATASE 70 u/l (38-126); ANION GAP 12 (6-22 (CALC)); BILIRUBIN, TOTAL 0.5 mg/dL (0.0-1.4); BUN 38 mg/dL (8-23); BUN/CREATININE RATIO 36 (12-20 (CALC)); CARBON DIOXIDE 23 mmol/l (22-30); CHLORIDE 97 mmol/l (95-108); CREATININE 1.1 mg/dL (0.7-1.3); GFR > 60 ML/MIN (>=60 (CALC)); GFR FOR AFR.AMER. > 60 ML/MIN (>=60 (CALC)); SGOT/AST 27 u/l (19-48); SODIUM 128 mmol/l (137-146); TOTAL PROTEIN 7.6 g/dL (6.3-8.2)
[2021-03-15 18:31] VITALS: BP 168/77
[2021-03-15] MEDS ORDERED: KEFLEX500 MG PO (21:15)
[2021-03-15] MEDS ORDERED: CLARITIN10 M2 PO (21:15)
== END 2021-03-15 22:35 | disposition home or self-care (01) | DRG 641 ==
LOC: ED 16:09
PROVIDERS: Family Medicine
DX: E87.1 Hypo-osmolality and hyponatremia (principal); J06.9 Acute upper respiratory infection, unspecified; I10 Essential (primary) hypertension; T50.3X6A Underdosing of electrolytic, caloric and water-balance agents, initial encounter; Z91.128 Patient's intentional underdosing of medication regimen for other reason; Z20.822 Contact with and (suspected) exposure to COVID-19

== ENCOUNTER 2021-03-28 13:11 | Emergency (ER) | payer OTHER, MEDICARE ==
[~2021-03-28] VITALS: Ht 180.3 cm; Wt 72.7 kg
[~2021-03-28 13:11] MED LIST changes: +CLARITIN10 M2 PO; +KEFLEX500 MG PO
[2021-03-28] MEDS ORDERED: FERROUS SULF325 M3 PO (15:18)
[2021-03-28] MEDS ORDERED: LORTAB 1010 MG PO (15:47)
[2021-03-28 16:10] VITALS: BP 143/63
== END 2021-03-28 16:10 | disposition home or self-care (01) | DRG 554 ==
LOC: ED 13:11
DX: M19.032 Primary osteoarthritis, left wrist (principal); I10 Essential (primary) hypertension

== ENCOUNTER 2021-04-28 12:48 | Emergency (ER) | payer OTHER, MEDICARE ==
[~2021-04-28] VITALS: Ht 180.3 cm; Wt 72.0 kg
[~2021-04-28 12:48] MED LIST changes: +FERROUS SULF325 M3 PO; +LORTAB 1010 MG PO
[2021-04-28 16:11] LABS: HEMATOCRIT 24.2 % (39.0-50.0); HEMOGLOBIN 8.1 g/dl (14.0-18.0); IMMATURE GRANULOCYTES 1.8 % (0.0-5.0); MEAN CELL VOLUME 91.3 fL CALC (80.0-100.0); MEAN CORPUSCULAR HGB 30.6 pG CALC (26.0-32.0); MEAN CORPUSCULAR HGB CONC 33.5 g/dL CAL (32.0-36.0); NEUT# 3.59 thou/uL (1.82-7.42); RED BLOOD COUNT 2.65 mill/uL (4.70-6.10); RED CELL DISTRI WIDTH 14.6 % (11.5-15.5)
[2021-04-28 16:30] LABS: ALBUMIN 3.8 g/dL (3.2-5.0); ALKALINE PHOSPHATASE 89 u/l (38-126); ANION GAP 17 (6-22 (CALC)); BILIRUBIN, TOTAL 0.3 mg/dL (0.0-1.4); BUN 33 mg/dL (8-23); BUN/CREATININE RATIO 25 (12-20 (CALC)); CARBON DIOXIDE 22 mmol/l (22-30); CHLORIDE 95 mmol/l (95-108); CREATININE 1.3 mg/dL (0.7-1.3); GFR 53 ML/MIN (>=60 (CALC)); GFR FOR AFR.AMER. > 60 ML/MIN (>=60 (CALC)); POTASSIUM 4.5 mmol/l (3.5-5.1); SGOT/AST 44 u/l (19-48); SODIUM 129 mmol/l (137-146); TOTAL PROTEIN 7.5 g/dL (6.3-8.2)
[2021-04-28] MEDS ORDERED: MECLIZINE25 MG PO ×2 (16:47→18:18)
[2021-04-28] MEDS ORDERED: ATIVAN1 MG PO ×2 (16:54→18:18)
[2021-04-28 17:00] VITALS: BP 164/66
== END 2021-04-28 17:00 | disposition home or self-care (01) | DRG 149 ==
LOC: ED 12:48
PROVIDERS: Family Medicine
DX: R42 Dizziness and giddiness (principal); I10 Essential (primary) hypertension; F32.A Depression, unspecified; T43.206A Underdosing of unspecified antidepressants, initial encounter; Z91.128 Patient's intentional underdosing of medication regimen for other reason

== ENCOUNTER 2021-05-23 17:29 | Observation (INO) | payer OTHER, MEDICARE ==
[~2021-05-23] VITALS: Ht 180.3 cm; Wt 75.0 kg
[~2021-05-23 17:29] MED LIST changes: +ATIVAN1 MG PO; +MECLIZINE25 MG PO
--- NOTE | 2021-05-23 19:00 | NUR ---
PT TO ROOM VIA W/C. TRIAGED AT BEDSIDE. AT BEDSIDE.
[2021-05-23 19:20] VITALS: BP 143/64
[2021-05-23 19:30] VITALS: BP 149/67
--- NOTE | 2021-05-23 19:40 | NUR ---
BLADDER SCAN PERFORMED WITH RESULT OF >597ML, DR HOWARD NOTIFIED.
--- NOTE | 2021-05-23 19:50 | NUR ---
2 UNSUCCESSFUL IV STARTS, BLOOD SAMPLE OBTAINED. -DIAL EQUIPMENT ENGINEER NOTIFIED. PT REFUSING DRUMMOND CATH-DR HOWARD NOTIFIED.
[2021-05-23 20:03] LABS: HEMATOCRIT 21.1 % (39.0-50.0); IMMATURE GRANULOCYTES 0.2 % (0.0-5.0); MEAN CELL VOLUME 92.5 fL CALC (80.0-100.0); MEAN CORPUSCULAR HGB 30.3 pG CALC (26.0-32.0); MEAN CORPUSCULAR HGB CONC 32.7 g/dL CAL (32.0-36.0); NEUT# 2.87 thou/uL (1.82-7.42); RED BLOOD COUNT 2.28 mill/uL (4.70-6.10); RED CELL DISTRI WIDTH 13.9 % (11.5-15.5)
[2021-05-23 20:11] LABS: HEMOGLOBIN 6.9 g/dl (14.0-18.0)
[2021-05-23 20:17] LABS: ALBUMIN 3.8 g/dL (3.2-5.0); ALKALINE PHOSPHATASE 90 u/l (38-126); AMYLASE 74 u/l (30-110); ANION GAP 13 (6-22 (CALC)); BILIRUBIN, TOTAL 0.3 mg/dL (0.0-1.4); BUN 36 mg/dL (8-23); BUN/CREATININE RATIO 23 (12-20 (CALC)); CARBON DIOXIDE 25 mmol/l (22-30); CHLORIDE 99 mmol/l (95-108); CREATININE 1.6 mg/dL (0.7-1.3); GFR 42 ML/MIN (>=60 (CALC)); GFR FOR AFR.AMER. 51 ML/MIN (>=60 (CALC)); LIPASE 45 u/l (23-300); POTASSIUM 4.6 mmol/l (3.5-5.1); SGOT/AST 26 u/l (19-48); SODIUM 132 mmol/l (137-146); TOTAL PROTEIN 7.6 g/dL (6.3-8.2)
[2021-05-23 20:22] LABS: ACT PARTIAL THROMBO TIME 30.5 SECONDS (20.0-32.5); INTERNATIONAL NORMALIZED RATIO 1.1 RATIO (0.7-1.3); PROTHROMBIN TIME 11.6 SECONDS (9.0-12.5)
--- NOTE | 2021-05-23 20:30 | NUR ---
THIS RN ASSISTED DR HOWARD WITH RECTAL EXAM
[2021-05-23] MEDS ORDERED: MIRTAZAPINE15 MG PO (20:49)
--- NOTE | 2021-05-23 20:55 | NUR ---
PT WITH 300ML URINE OUT VIA URINAL. SAMPLE COLLECTED AND TO LAB.
[2021-05-23 21:12] LABS: URINE BILIRUBIN - DIPSTICK NEGATIVE (NEGATIVE); URINE BLOOD DIPSTICK NEGATIVE (NEGATIVE); URINE COLOR YELLOW; URINE GLUCOSE - DIPSTICK NEGATIVE (NEGATIVE); URINE KETONE NEGATIVE (NEGATIVE); URINE LEUK ESTERASE NEGATIVE (NEGATIVE); URINE PROTEIN - DIPSTICK NEGATIVE (NEG-TRACE); URINE SPECIFIC GRAVITY 1.025; URINE UROBILINOGEN - DIPSTICK 0.2 E.U./dL (0.2)
[2021-05-23 21:20] LABS: URINE NITRITE - DIPSTICK NEGATIVE (Negative)
--- NOTE | 2021-05-23 21:58 | NUR ---
RESPIRATORY IN DRAWING ABG ON PT.
--- NOTE | 2021-05-23 22:09 | NUR ---
REPORT GIVEN TO FABIANA MCWILLIAMS FOR TRANSITION OF CARE.
[2021-05-23 22:51] VITALS: BP 157/70
[2021-05-23 23:00] VITALS: BP 132/76
[2021-05-23 23:13] VITALS: BP 138/61
--- NOTE | 2021-05-23 23:15 | NUR ---
BLOOD STARTED. PT VOIDED 300 CC IN URINAL. PT GIVEN WATER. ATTEMPTED TO CALL REPORT TO MED-SURG BUT PLANS CHANGED TO SEND PT TO ICU M/S OVERFLOW.
[2021-05-23 23:20] VITALS: BP 138/61
--- NOTE | 2021-05-23 23:25 | NUR ---
CALLED ICU/WILL SEND SBAR.
--- NOTE | 2021-05-23 23:53 | NUR ---
REPORT TO FABIANA HAYS/ICU
[2021-05-24] VITALS (12 sets, daily range): BP systolic 117–170; BP diastolic 54–79
--- NOTE | 2021-05-24 00:04 | NUR ---
BELONGINGS CHECK LIST COMPLETED. TOOK MOST BELONGINGS. BEHAVIORAL HEALTH DIRECTOR HERE TO TRANSPORT PT TO ICU OVERFLOW.
--- NOTE | 2021-05-24 00:07 | NUR ---
TO ICU WITH RN/BLOOD INFUSING/ON TRANSPORT MONITOR/O2.
--- NOTE | 2021-05-24 00:15 | NUR ---
RECEIVED PATIENT FROM ED VIA STRETCHER AT THIS TIME. PATIENT TRANSFERED TO BED ASSISTED BY RN KIRTI REYES AND THIS ASSOCIATE SOFTWARE DEVELOPMENT ENGINEER. PATIENT ALERT AND ORIENTED X 3. PATIENT ARRIVED ONTO UNIT WITH ONE UNIT OF PACKED RED BLOOD CELLS RUNNING AT 70ML/HR. PATIENT ALSO ON 2 UNITS OF O2 VIA NASAL CANNULA AT THIS TIME AND SPO2 IS 99%. PATIENT DEINES ANY SHORTNESS OF BREATH. PATIENT ALSO DENIES ANY CHEST OR BACK PAIN BUT STATES OCCASSIONALLY HE HAS RIGHT SIDED FLANK PAIN. BREATH SOUNDS ARE CLEAR AND LUNG FIELD ARE CLEAR AT THIS TIME. BOWELS SOUNDS ARE PRESENT AND PATIENT STATES HE HAS A BOWEL MOVEMENT IN EARLY AM ON 05/23/21 AND WAS "NORMAL" IN COLOR AND CONSISTANCY. CORE CUTTER AND REAMER DONE SEE INTERVENTIONS. PATIENT DIRECT SUPPORT PROFESSIONAL HOME HEALTH SHOWING S/R AND HR OF 62 BPM. VITAL SIGNS ARE TEMP. 97.4 P. 62 R. 16 BP IS CURRENTLY 138/61. PATIENT RATES HIS FLANK PAIN A # 3 ON THE PAIN SCALE OF 0-10 AND WAS PREVIOUSLY MEDICATED IN ED PRIOR TO TRANSFER TO FLOOR. ROOM ORIENTATION GIVEN SIDERAILS ARE UP X 2 CALL LIGHT IS WIHTIN REACH. WILL CONTINUE TO MONITOR.
--- NOTE | 2021-05-24 01:54 | NUR ---
BLOOD TRANSFUSION COMPLETE AT THIS TIME. SEE TAR FOR FOR VITAL SIGNS. PATIENT COMPLAINING OF FLANK (RIGHT SIDE) AT THIS TIME. PATIENT ADVISED THAT UTRAM IS AVAIL AND REQUEST PAIN MEDICATION TO BE GIVEN.
--- NOTE | 2021-05-24 02:01 | NUR ---
50MG OF ULTRAM PO GIVEN AT THIS TIME FOR RIGHT SIDED FLANK PAIN OF 4 OUT OF PAIN SCALE OF 0-10. WILL CONTINUE TO MONITOR.
--- NOTE | 2021-05-24 02:15 | NUR ---
PATIENT 2ND UNIT OF PACKED RED BLOOD CELLS STARTED AT THIS TIME. VITAL SIGNS TAKEN T. 97.8 P. 66 BP IS 170/76 RES. 17 PATIENT DENIES ANY SHORTNESS OF BREATH AT THIS TIME. WILL CONTINUE TO MONITOR.
--- NOTE | 2021-05-24 04:00 | NUR ---
PATIENT RESTING IN BED AT THIS TIME. PATIENT STATES HIS PAIN LEVEL IS A 1 CURRENTLY OUT OF THE PAIN SCALE OF 0-10. PATIENT CONTINUES RECEIVING SECOND UNIT OF PBRC'S AT THIS TIME. PATIENT DENIES ANY PAIN OR DISCOMFORT OR SHORTNESS OF BREATH AT THIS TIME. SIZE MARKER SHOWING HR OF 59 SB AT THIS TIME. SIDERAILS ARE UP CALL LIGHT WITHIN REACH.
--- NOTE | 2021-05-24 04:59 | NUR ---
PATIENT BLOOD TRANSFUED IN AT THIS TIME. SEE TAR FOR VITAL SIGNS. PATIENT DENIES ANY PAIN OR SHORTNESS OF BREATH. PATIENT ALERT AND ORIENT X 3 SIDERAILS ARE UP CALL LIGHT IS WITHIN REACH. #18 LFA IV SITE FLUSHED AT THIS TIME. WILL CONTINUE TO MONITOR.
[2021-05-24 06:04] LABS: MEAN CELL VOLUME 91.1 fL CALC (80.0-100.0); MEAN CORPUSCULAR HGB 30.5 pG CALC (26.0-32.0); MEAN CORPUSCULAR HGB CONC 33.5 g/dL CAL (32.0-36.0); RED BLOOD COUNT 3.05 mill/uL (4.70-6.10); RED CELL DISTRI WIDTH 13.4 % (11.5-15.5)
[2021-05-24 06:07] LABS: HEMATOCRIT 27.8 % (39.0-50.0); HEMOGLOBIN 9.3 g/dl (14.0-18.0)
[2021-05-24 06:29] LABS: CREATININE 1.4 mg/dL (0.7-1.3); MAGNESIUM 1.8 mg/dL (1.6-2.3); POTASSIUM 4.6 mmol/l (3.5-5.1)
--- NOTE | 2021-05-24 07:07 | NUR ---
PT REPORT RECEIVED FROM FRONT OFFICE CLERK. PT ALERT/ORIENTED 3, DENIES ANY PAIN AT THIS TIME, STATES HE HAS NEVER HAD TO HAVE BLOOD TRANSFUSION BEFORE LAST NIGHT THAT HE REMEMBERS. STATES HAD LEFT FLANK AREA DISCOMFORT DURING THE NIGHT BUT THAT PAIN MEDICINE TOOK THAT AWAY. PT URINATED APPROXX 200 OUT WITHIN FIRST 30 MIN OF THIS DISPATCH ASSOCIATE BEING HERE. PT SAYS HE WANTS TO GO HOME TODAY ADVISED THE PT THAT THE DOCTOR WOULD BE HERE SOON TO TALK WITH HIM. SITTING UP IN BED, ASKING WHEN BREAKFAST WILL BE SERVED.
--- NOTE | 2021-05-24 07:30 | NUR ---
Patient is screened for intervention and no immediate needs are identified. Please consider consult if patient has difficulty with transitional movements or energy conservation etc.
--- NOTE | 2021-05-24 07:41 | NUR ---
DR. HUNT HERE SPEAKING WITH PT.
--- NOTE | 2021-05-24 11:42 | NUR ---
PTS AT BEDSIDE, WAITING FOR DR. HUNT TO WRITE DISCHARGE PAPERS FOR PT.
--- NOTE | 2021-05-24 13:29 | NUR ---
PT DISCHARGED WITH WITH INST. AND TAKEN TO PRIVATE CAR PER W/C. PT REMAINS ALERT/ORIENTED X3, AI TO GET UP AND WALK FROM W/C TO CCAR WITH SLOW GAIT
[2021-05-25] MEDS ORDERED: SOD CHLORIDE1 GM PO (15:20)
== END 2021-05-24 13:30 | disposition home or self-care (01) | DRG 812 ==
LOC: ED 17:29 → ED-I 21:50 → ED 21:51 → ICU 22:00 → MS2 22:00 → ICU 22:01
PROVIDERS: ADMIT Hospitalist; ATTEND Hospitalist
PROC: 30233N1 Transfusion of Nonautologous Red Blood Cells into Peripheral Vein, Percutaneous Approach (ICD-10-PCS; principal; 2021-05-23)
PROC: 30233N1 Transfusion of Nonautologous Red Blood Cells into Peripheral Vein, Percutaneous Approach (ICD-10-PCS; 2021-05-24)
DX: D64.9 Anemia, unspecified (principal); I12.9 Hypertensive chronic kidney disease with stage 1 through stage 4 chronic kidney disease, or unspecified chronic kidney disease; N18.9 Chronic kidney disease, unspecified; I25.10 Atherosclerotic heart disease of native coronary artery without angina pectoris; K59.00 Constipation, unspecified; Z87.442 Personal history of urinary calculi; Z20.822 Contact with and (suspected) exposure to COVID-19
CPT/HCPCS: P9016; Q9967

== ENCOUNTER 2021-05-25 10:11 | Inpatient (IN) | payer OTHER, MEDICARE ==
[~2021-05-25] VITALS: Ht 180.3 cm; Wt 75.0 kg
[2021-05-25] VITALS (112 sets, daily range): BP systolic 114–187; BP diastolic 53–157
[~2021-05-25 10:11] MED LIST changes: +MIRTAZAPINE15 MG PO
--- NOTE | 2021-05-25 10:11 | NUR ---
PT TO ROOM VIA WC ABLE TO TRANSFER SELF TO STRETCHER.
--- NOTE | 2021-05-25 11:20 | NUR ---
PT MOVED TO ROOM 11 TO FACILITATE ET INSERTION STAT. CONTINUED TONGUE SWELLING COMPROMISING AIRWAY. PT/SPOUSE VOICE UNDERSTANDING.
--- NOTE | 2021-05-25 12:35 | NUR ---
PT REMAINS INTUBATED. VSS. CENTRAL LINE PATENT. SPOUSE AT BEDSIDE.
--- NOTE | 2021-05-25 13:08 | NUR ---
BRACER ASSISTED C INTUBATION. ORE MIXER C ED PHYSICIAN PLACED ARTIFICIAL AIRWAY, NONTRAUMATIC X1 ATTEMPT. AIRWAY PATENT AND SECURE. PT PLACED ON VENT. NAD. VSS. ABG OBTAINED, VENT PARAMTERS TITRATED PER ABG RESULTS. AWARE. BRACER TO MONITOR.
[2021-05-25 13:33] LABS: HEMATOCRIT 26.7 % (39.0-50.0); HEMOGLOBIN 9.2 g/dl (14.0-18.0); IMMATURE GRANULOCYTES 0.3 % (0.0-5.0); MEAN CELL VOLUME 90.5 fL CALC (80.0-100.0); MEAN CORPUSCULAR HGB 31.2 pG CALC (26.0-32.0); MEAN CORPUSCULAR HGB CONC 34.5 g/dL CAL (32.0-36.0); NEUT# 8.63 thou/uL (1.82-7.42); RED BLOOD COUNT 2.95 mill/uL (4.70-6.10); RED CELL DISTRI WIDTH 13.7 % (11.5-15.5)
[2021-05-25 13:34] LABS: URINE BILIRUBIN - DIPSTICK NEGATIVE (NEGATIVE); URINE BLOOD DIPSTICK TRACE-INTACT (NEGATIVE); URINE COLOR YELLOW; URINE GLUCOSE - DIPSTICK NEGATIVE (NEGATIVE); URINE KETONE NEGATIVE (NEGATIVE); URINE LEUK ESTERASE NEGATIVE (NEGATIVE); URINE PH 5.5 (4.5-8.0); URINE PROTEIN - DIPSTICK NEGATIVE (NEG-TRACE); URINE SPECIFIC GRAVITY <=1.005; URINE UROBILINOGEN - DIPSTICK 0.2 E.U./dL (0.2)
[2021-05-25 13:36] LABS: URINE NITRITE - DIPSTICK NEGATIVE (Negative)
--- NOTE | 2021-05-25 13:54 | NUR ---
IV ABT INFUSING PT SEDATED/INTUBATED. VSS.
[2021-05-25 13:57] LABS: ALBUMIN 3.7 g/dL (3.2-5.0); ALKALINE PHOSPHATASE 85 u/l (38-126); ANION GAP 15 (6-22 (CALC)); BILIRUBIN, TOTAL 0.4 mg/dL (0.0-1.4); BUN 46 mg/dL (8-23); BUN/CREATININE RATIO 36 (12-20 (CALC)); CARBON DIOXIDE 21 mmol/l (22-30); CHLORIDE 102 mmol/l (95-108); CREATININE 1.3 mg/dL (0.7-1.3); GFR 53 ML/MIN (>=60 (CALC)); GFR FOR AFR.AMER. > 60 ML/MIN (>=60 (CALC)); POTASSIUM 4.1 mmol/l (3.5-5.1); SGOT/AST 39 u/l (19-48); SODIUM 133 mmol/l (137-146); TOTAL PROTEIN 7.4 g/dL (6.3-8.2)
--- NOTE | 2021-05-25 14:45 | NUR ---
DRUMMOND CATH PLACEMENT TO BSDB. SECURED AT RT THIGH.
[2021-05-25] MEDS ORDERED: SOD CHLORIDE1 GM PO (15:20)
--- NOTE | 2021-05-25 16:10 | NUR ---
APPROX 1600 ML CLEAR YELLOW URINE OUTPUT FROM BSDB. PT REMAINS INTUBATED. NG TUBE PATENT. SOFT RESTRAINS IN PLACE FOR PT SAFETY. VSS. CENTRAL LINE TO RT CHEST. STABLE.
--- NOTE | 2021-05-25 17:35 | NUR ---
SPOUSE AWARE OF PENDING ADMIT. ADVISED OF CONTINUED WAIT TIME. VSS. COMFORT MEASURES PROVIDED TO PT.
--- NOTE | 2021-05-25 19:00 | NUR ---
REPORT PROVIDED TO OJ. PT STABLE. REMAINS INTUBATED/SEDATED.
--- NOTE | 2021-05-25 19:20 | NUR ---
PT RESTING. INTUBATED ON VENT. VSS. BBS CLEAR. VERSED/DIPRIVAN INFUSING VIA PUMP TO CENTRAL LINE. DRUMMOND PATENT. CLEAR JAMARCUS. NG TO LIS. BILAT UPPER EXT SOFT RESTRAINTS. AT BEDSIDE. TOLERATING VENT WELL.
--- NOTE | 2021-05-25 20:30 | NUR ---
WITHOUT CHANGED. VSS. AT BEDSIDE. NAD.
--- NOTE | 2021-05-25 21:33 | NUR ---
PT RESTING. NAD. VSS. AWAITING ICU TO RECEIVE PT
--- NOTE | 2021-05-25 22:50 | NUR ---
REPORT TO FABIANA MARIN-ICU
--- NOTE | 2021-05-25 23:34 | NUR ---
TO FLOOR WITH 2 RN/1 RT/1 FISH STRAIGHTENER. VERSED/PROPAFAL DRIPS INFUSING.
--- NOTE | 2021-05-25 23:45 | NUR ---
ARRIVED FROM ED ACCOMPANIED BY NURSE AND RESPIRATORY THERAPIST. MODERATELY SEDATED ON PROPROFOL AT 50 MCG/KG/MIN AND VERSED AT 10ML/HR VIA RIGHT IJ TLC RASS -3 SCORE. PATIENT ORALLY INTURBATED WITH #8.0 ET SECURED AT 24 CM LIP LINE ON AC OF 16 TV 450 FIO2 28% WITH +5 OF PEEP RIGHT NARE WITH NG TUBE CONNECTED TO LOW INTERMITTENT SUCTION. LUNG SOUND CLEAR TRACHEA AT MIDLINE. WALLPAPER REMOVER STEAM SHOWS SINUS DREA CARDIA WITH OCCASSIONAL PVCS' HEART SOUNDS WITH MITRAL REGURGE S1, S2 DRUMMOND CATHETER WITH YELLOW CLEAR URINE VSS SKIN WARM AND DRY
[2021-05-26] VITALS (32 sets, daily range): BP systolic 117–188; BP diastolic 61–93
--- NOTE | 2021-05-26 00:45 | NUR ---
ORAL CARE PROVIDED COPIOUS THICK CLEAR SECREATIONS REMOVED VIA NG SUCTION. O2 SAT 99% ADMITTING SUPERVISOR SHOWS SINUS BRADYCARDIA
--- NOTE | 2021-05-26 02:00 | NUR ---
REPOSITIONED IN BED SKIN REMAIN INTACT NO REDNESS NOTED. NG TUBE AT RIGHT NARE DRAINING YELLOW BILE LIKE GASTRIC DRAINAGE
--- NOTE | 2021-05-26 04:00 | NUR ---
REPOSITIONED IN BED RESTRAINTS RELEASED FOR ROM. TOLERATED WELL O2 SAT 99% ORAL CARE PROVIDED MOSTURIZED MUCOUS MEMBRANES WITH SWAB.
--- NOTE | 2021-05-26 06:00 | NUR ---
REPOSITIONED IN BED RESTRAINTS RELEASED FOR ROM AM LABS OBTAINED, PORTABLE CHEST XRAY COMPLETED PATIENT TOLERATED WELL SEDATION MAINTAINED AT RASS -3 O2 SAT AT 99%
[2021-05-26 06:13] LABS: HEMATOCRIT 26.2 % (39.0-50.0); HEMOGLOBIN 8.9 g/dl (14.0-18.0); MEAN CELL VOLUME 91.3 fL CALC (80.0-100.0); RED BLOOD COUNT 2.87 mill/uL (4.70-6.10); RED CELL DISTRI WIDTH 13.6 % (11.5-15.5)
[2021-05-26 06:21] LABS: ANION GAP 13 (6-22 (CALC)); BUN 39 mg/dL (8-23); BUN/CREATININE RATIO 37 (12-20 (CALC)); CARBON DIOXIDE 22 mmol/l (22-30); CHLORIDE 104 mmol/l (95-108); CREATININE 1.1 mg/dL (0.7-1.3); GFR > 60 ML/MIN (>=60 (CALC)); GFR FOR AFR.AMER. > 60 ML/MIN (>=60 (CALC)); MAGNESIUM 2.1 mg/dL (1.6-2.3); POTASSIUM 4.1 mmol/l (3.5-5.1); SODIUM 136 mmol/l (137-146)
--- NOTE | 2021-05-26 07:30 | NUR ---
PATIENT'S CALLED, UPDATE WAS GIVEN.
--- NOTE | 2021-05-26 07:36 | NUR ---
Patient is screened for intervention and no immediate needs are identified at this time
--- NOTE | 2021-05-26 08:00 | NUR ---
patient is sedated, vented. vitals are stable. diminshed lung sounds. normal heart sounds. active bowel sounds. NO PITTING EDEMA. NO SKIN BREAKDOWN. SCDS IN PLACE. PATIENT MOVES HIS LEGS FROM SIDE TO SIDE. SAFETY MEASURES IN PLACE. WILL CONTINUE TO MONITOR PER HOSPITAL'S POLICY.
--- NOTE | 2021-05-26 10:30 | NUR ---
PATIENT WAS REMOVED OFF THE VENT, SPITTING OUT BRIGHT RED BLOOD. SUCTION AT BEDSIDE, PATIENT CONTINUES TO COUGH AND SPIT OUT BLOOD.
--- NOTE | 2021-05-26 10:30 | NUR ---
PT EXTUBATED TO 3L NC. AWARE AND VISITED C PT S/P EXTUBATION. CO C UNILATERAL SWELLING OF TONGUE, C NO C/O DISTRESS. COPIOUS AMOUNTS OF OLD DARK BLOOD UPON EXTUBATION. PT CURRENTLY LAUGHING IN ROOM AND TALKING TO SELF. NO APPARANT DISTRESS NOTED. SLOPE HOIST OPERATOR TO MONITOR.
--- NOTE | 2021-05-26 11:30 | NUR ---
PATIENT'S STATED HE WAS HAVING ANIXTEY NEEDED HIS ATIVAN. ASKED THE PATIENT IF HE WAS FEELING ANXIOUS HE STATED YES WITH TEARS IN HIS EYES. STATED HE FELT LIKE "DYING" WANTED SOME HELP. PATIENT HAD THE MEDICATION ON HIS MED LIST. CONTACTED THE DOCTOR. HE WAS ABLE TO PUT IN AN IV ANXITEY MEDICATION FOR PATIENT.
--- NOTE | 2021-05-26 13:00 | NUR ---
PATIENT'S TONGUE LOOKS LESS SWOLLEN THAN IT DID THIS MORNING.
--- NOTE | 2021-05-26 13:06 | NUR ---
PATIENT SEEMED MORE CALM, TURNED OFF THE LIGHTS, TRIED TV TO BE A DISTRACTED BUT IT SEEMED TO HAVE MADE IT A LITTLE WORSE. BP WAS 180'S SYSTOLIC. AFTER AN HOUR OF INTERVENTIONS BEING PLACED, HE DOES APPEAR BETTER NODDED HIS HEAD WHEN I ASKED IF HE WAS DOING BETTER. STILL APPEARS SLIGHTLY ANXIOUS BUT BETTER THAN EARLIER. VITALSARE STABLE AT 154/77, HR 77. 1L O2NC.
--- NOTE | 2021-05-26 16:10 | NUR ---
patient given i.s, patient got up to 1000. educated was stated to be understood by the patient. RT was at bedside as well.
--- NOTE | 2021-05-26 17:00 | NUR ---
PATIENT IS CURRENTLY SLEEPING. HE WAS STATING EARLIER THAT HE "IS ", NO PRN MEDICATION IS ALLOWED TO BE GIVEN. DISTRACTION WAS PORVIDED.
--- NOTE | 2021-05-26 18:13 | NUR ---
PATIENT'S WASHING HIS MOUTH WITH SWABS AT BEDSIDE TO KEEP MOUTH MOIST.
--- NOTE | 2021-05-26 19:45 | NUR ---
PATIENT RESTING IN BED. ALERT AND ORIENTED. ABLE TO MAKE NEEDS KNOWN. ASSESSMENT COMPLETE. RT. TRIPLE LUMEN IJ PATENT. PATIENT APPEARS TO HANDLE HIS STAY AT THE HOSPITAL BETTER, ESPECIALLY WITHOUT PRESENT WHEN EVERYTHING IS EXPLAINED TO HIM, FULLY. DRUMMOND PATENT, DRAINING YELLOW URINE. O2 REMAINS AT 1L. PATIENT DOES APPEAR TO CALL OUT AT NURSES STATION. EXPLAINED HOW TO USE CALL LIGHT AND REMOTE TO PATIENT MULTIPLE TIMES. CALL LIGHT AND BELONGINGS REMAIN IN REACH.
--- NOTE | 2021-05-26 23:45 | NUR ---
HUNG PATIENTS SCHEDULED IV ZOSYN. PUT PATIENTS BELONGINGS WITHIN REACH. PATIENT OBSERVED TO PUT CALL LIGHT ON MULTIPLE TIMES WITHIN MINUTES. PATIENT APPEARS TO WANT STAFF TO DO EVERYTHING ALTHOUGH PATIENT IS ABLE TO USE HIS HANDS TO WIPE HIS FACE, NOSE AND SWAB HIS MOUTH TO MOISTEN IT.
[2021-05-27] VITALS (18 sets, daily range): BP systolic 132–168; BP diastolic 54–72
--- NOTE | 2021-05-27 04:05 | NUR ---
BRIE PATIENT LABS. PATIENT TOLERATED WELL. PROVIDED PATIENT WITH BLANKET FROM WARMER PER REQUEST. PATIENT ASKED FOR COFFEE TWICE. REMINDED PATIENT THAT HE WAS NPO AND A SWALLOW EVAL WAS GOING TO BE DONE IN THE MORNING BY DAY SHIFT. BED REMAINS IN LOW POSITION. CALL LIGHT AND BELONGINGS REMAIN IN REACH.
--- NOTE | 2021-05-27 04:35 | NUR ---
EMPTIED PATIENTS ROOM TRASH. PATIENT APPEARS ASLEEP. NO SIGNS OF PAIN OR DISTRESS NOTED. EMPTIED DRUMMOND BAG WITH 550CC YELLOW URINE OUTPUT.
[2021-05-27 05:23] LABS: HEMATOCRIT 25.1 % (39.0-50.0); HEMOGLOBIN 8.5 g/dl (14.0-18.0); MEAN CELL VOLUME 91.3 fL CALC (80.0-100.0); MEAN CORPUSCULAR HGB 30.9 pG CALC (26.0-32.0); MEAN CORPUSCULAR HGB CONC 33.9 g/dL CAL (32.0-36.0); RED BLOOD COUNT 2.75 mill/uL (4.70-6.10); RED CELL DISTRI WIDTH 13.7 % (11.5-15.5)
--- NOTE | 2021-05-27 05:43 | NUR ---
HUNG PATIENTS ABT. REPOSITIONED PATIENT IN BED. PATIENT CLEAN AND DRY. PROVIDED CLEAN MOUTH SWAB. CALL LIGHT AND BELONGINGS IN REACH.
[2021-05-27 05:54] LABS: ANION GAP 12 (6-22 (CALC)); BUN 42 mg/dL (8-23); BUN/CREATININE RATIO 33 (12-20 (CALC)); CARBON DIOXIDE 23 mmol/l (22-30); CHLORIDE 109 mmol/l (95-108); CREATININE 1.3 mg/dL (0.7-1.3); GFR 53 ML/MIN (>=60 (CALC)); GFR FOR AFR.AMER. > 60 ML/MIN (>=60 (CALC)); MAGNESIUM 2.3 mg/dL (1.6-2.3); POTASSIUM 4.1 mmol/l (3.5-5.1); SODIUM 140 mmol/l (137-146)
--- NOTE | 2021-05-27 08:00 | NUR ---
PATIENT IS A/O, APPEARS UPSET FROM LAST NIGHT, NO OXYGEN ON, DENIES PAIN AT THIS TIME. 3MM PERRL BILAT EYES. CLEAR TO DIMINISHED LUNG SOUNDS. ACTIVE BOWELS. NON TENDER ABDOMEN. NO EDEMA PRESENT AT THIS TIME. EQUAL AND STRONG HAND WELCOME DESK AGENT. NO ARM DRIFTS. SCDS IN PLACE. CALL LIGHT IN REACH WI CONTINUE TO MONITOR PER HOSPITAL'S POLICY.
--- NOTE | 2021-05-27 08:43 | NUR ---
SPOKE TO PATENTS , CODE WAS GIVEN, UPDATE PROVIDED. STATED SHE WILL BE IN AT 1000 TODAY TO VISIT.
--- NOTE | 2021-05-27 09:00 | NUR ---
TONGUE APPEARS LESS SWOLLEN COMPAIRED TO YESTERDAY MORNING.
--- NOTE | 2021-05-27 09:00 | NUR ---
PATIENT IS COMPLAINING HE WANTS TO LEAVE, DOESNT WANT TO STAY ANY LONGER. WILL INFORM DOCTOR.
--- NOTE | 2021-05-27 09:28 | NUR ---
CALLED DIETARY AGAIN, MIREYA STATED SHE WILL BRING UP HIS MEAL TRAY.
--- NOTE | 2021-05-27 10:00 | NUR ---
PATIENT TOLERTED CLEAR LIQUID DIET. PLACING FULL LIQUID FOR LUNCH.
[2021-05-27] MEDS ORDERED: AMOX/K CLAV875 M1 PO (13:57)
[2021-05-27] MEDS ORDERED: MEDDOSEPAK PO (13:57)
--- NOTE | 2021-05-27 14:45 | NUR ---
PATIENT DRANK FLUIDS NO PROBLEMS NOTED. ATE SOLID SNACK, PASSED. NO CHOKING OR ANY ISSUES WITH EATING SOLIDS AT THIS TIME. D/C DRUMMOND. EDUCATION PROVIDED ON EATING AND DRUMMOND.
--- NOTE | 2021-05-27 17:00 | NUR ---
patient wasnt tolerating well, bi-pap was placed back on.
--- NOTE | 2021-05-27 18:10 | NUR ---
PATIENT STATED "IM DYING". "ILL BE AND YALL CANT BRING ME BACK". EDUCATION WAS GIVEN. INFORMED HIM SHOULDNT TAKE ATIVAN PRN IF YOU PLAN TO GO HOME. YOU NEED TO PEE AND YOU CAN LEAVE. CO WORKER HELPED ME WITH CONVERSATION WITH HIS . THEY BOTH STATED THEY UNDERSTOOD AND WILL TRY TO URINATE IN THE URINAL.
--- NOTE | 2021-05-27 18:42 | NUR ---
PATIENT URINATED 200ML IN URINAL, HE IS NOW GETTING READY TO LEAVE.
== END 2021-05-27 19:00 | disposition home or self-care (01) | DRG 915 ==
LOC: ED 10:11 → ED-I 14:02 → ED 15:32 → ICU 15:33 → ED-I 15:33 → ICU 19:26
PROVIDERS: Family Medicine; ADMIT Hospitalist; ATTEND Hospitalist
PROC: 05HM33Z Insertion of Infusion Device into Right Internal Jugular Vein, Percutaneous Approach (ICD-10-PCS; principal; 2021-05-25)
PROC: 0BH17EZ Insertion of Endotracheal Airway into Trachea, Via Natural or Artificial Opening (ICD-10-PCS; 2021-05-25)
PROC: 5A1935Z Respiratory Ventilation, Less than 24 Consecutive Hours (ICD-10-PCS; 2021-05-25)
PROC: 0T9B70Z Drainage of Bladder with Drainage Device, Via Natural or Artificial Opening (ICD-10-PCS; 2021-05-25)
DX: T78.3XXA Angioneurotic edema, initial encounter (principal); J69.0 Pneumonitis due to inhalation of food and vomit; E87.1 Hypo-osmolality and hyponatremia; T46.4X5A Adverse effect of angiotensin-converting-enzyme inhibitors, initial encounter; I10 Essential (primary) hypertension; I25.10 Atherosclerotic heart disease of native coronary artery without angina pectoris; D64.9 Anemia, unspecified; F41.9 Anxiety disorder, unspecified; Z78.1 Physical restraint status; Z20.822 Contact with and (suspected) exposure to COVID-19
CPT/HCPCS: J2060; S0164

== ENCOUNTER 2021-05-28 07:55 | Emergency (ER) | payer OTHER, MEDICARE ==
[~2021-05-28] VITALS: Ht 180.3 cm; Wt 88.0 kg
[2021-05-28] VITALS (25 sets, daily range): BP systolic 133–173; BP diastolic 63–93
[~2021-05-28 07:55] MED LIST changes: +MEDDOSEPAK PO
[2021-05-28 09:04] LABS: HEMATOCRIT 26.9 % (39.0-50.0); IMMATURE GRANULOCYTES 0.8 % (0.0-5.0); MEAN CELL VOLUME 92.4 fL CALC (80.0-100.0); MEAN CORPUSCULAR HGB 30.9 pG CALC (26.0-32.0); MEAN CORPUSCULAR HGB CONC 33.5 g/dL CAL (32.0-36.0); NEUT# 7.24 thou/uL (1.82-7.42); RED BLOOD COUNT 2.91 mill/uL (4.70-6.10); RED CELL DISTRI WIDTH 13.9 % (11.5-15.5)
[2021-05-28 09:11] LABS: URINE BILIRUBIN - DIPSTICK NEGATIVE (NEGATIVE); URINE COLOR YELLOW; URINE GLUCOSE - DIPSTICK NEGATIVE (NEGATIVE); URINE KETONE NEGATIVE (NEGATIVE); URINE LEUK ESTERASE NEGATIVE (NEGATIVE); URINE PH 5.5 (4.5-8.0); URINE PROTEIN - DIPSTICK TRACE mg/dL (NEG-TRACE); URINE UROBILINOGEN - DIPSTICK 0.2 E.U./dL (0.2)
[2021-05-28 09:18] LABS: ALBUMIN 3.4 g/dL (3.2-5.0); ALKALINE PHOSPHATASE 70 u/l (38-126); AMYLASE 238 u/l (30-110); ANION GAP 12 (6-22 (CALC)); BILIRUBIN, TOTAL 0.4 mg/dL (0.0-1.4); BUN 45 mg/dL (8-23); BUN/CREATININE RATIO 39 (12-20 (CALC)); CARBON DIOXIDE 22 mmol/l (22-30); CHLORIDE 108 mmol/l (95-108); CREATININE 1.2 mg/dL (0.7-1.3); GFR 58 ML/MIN (>=60 (CALC)); GFR FOR AFR.AMER. > 60 ML/MIN (>=60 (CALC)); MAGNESIUM 2.1 mg/dL (1.6-2.3); POTASSIUM 3.6 mmol/l (3.5-5.1); SGOT/AST 35 u/l (19-48); SODIUM 138 mmol/l (137-146)
[2021-05-28 09:24] LABS: LIPASE 1938 u/l (23-300)
[2021-05-28 09:27] LABS: ACT PARTIAL THROMBO TIME 28.1 SECONDS (20.0-32.5); INTERNATIONAL NORMALIZED RATIO 1.1 RATIO (0.7-1.3); PROTHROMBIN TIME 11.6 SECONDS (9.0-12.5)
[2021-05-28 09:34] LABS: URINE BLOOD DIPSTICK TRACE (NEGATIVE); URINE NITRITE - DIPSTICK NEGATIVE (Negative)
== END 2021-05-28 14:01 | disposition short-term general hospital (02) | DRG 193 ==
LOC: ED 07:55
DX: J18.9 Pneumonia, unspecified organism (principal); K85.90 Acute pancreatitis without necrosis or infection, unspecified; R04.2 Hemoptysis; D64.9 Anemia, unspecified; I10 Essential (primary) hypertension; N40.0 Benign prostatic hyperplasia without lower urinary tract symptoms; Z95.2 Presence of prosthetic heart valve; Z20.822 Contact with and (suspected) exposure to COVID-19
CPT/HCPCS: J0131

== ENCOUNTER 2021-09-02 05:26 | Inpatient (IN) | payer OTHER, MEDICARE ==
[2021-09-02] VITALS (13 sets, daily range): BP systolic 108–177; BP diastolic 50–88
[~2021-09-02] VITALS: Ht 180.3 cm; Wt 80.0 kg
--- NOTE | 2021-09-02 05:51 | NUR ---
PT TO ROOM VIA EMS
[2021-09-02] MEDS ORDERED: AMLODIPINE PO (05:54)
[2021-09-02 05:56] LABS: URINE BILIRUBIN - DIPSTICK NEGATIVE (NEGATIVE); URINE BLOOD DIPSTICK TRACE-INTACT (NEGATIVE); URINE COLOR YELLOW; URINE GLUCOSE - DIPSTICK NEGATIVE (NEGATIVE); URINE KETONE NEGATIVE (NEGATIVE); URINE LEUK ESTERASE NEGATIVE (NEGATIVE); URINE PROTEIN - DIPSTICK NEGATIVE (NEG-TRACE); URINE SPECIFIC GRAVITY 1.015; URINE UROBILINOGEN - DIPSTICK 0.2 E.U./dL (0.2)
[2021-09-02] MEDS ORDERED: ASPIRIN81 MG PO (05:56)
[2021-09-02] MEDS ORDERED: CARDURA1 MG PO (05:56)
[2021-09-02] MEDS ORDERED: FAMOTIDINE20 M1 PO (05:58)
[2021-09-02] MEDS ORDERED: PEPCID20 MG PO (05:58)
[2021-09-02] MEDS ORDERED: PERCOCET 5/325M1 TAB PO (06:00)
[2021-09-02] MEDS ORDERED: PHOSPHA PO (06:00)
[2021-09-02 06:01] LABS: HEMATOCRIT 27.9 % (39.0-50.0); HEMOGLOBIN 9.6 g/dl (14.0-18.0); IMMATURE GRANULOCYTES 2.7 % (0.0-5.0); MEAN CELL VOLUME 90.9 fL CALC (80.0-100.0); MEAN CORPUSCULAR HGB 31.3 pG CALC (26.0-32.0); MEAN CORPUSCULAR HGB CONC 34.4 g/dL CAL (32.0-36.0); NEUT# 7.23 thou/uL (1.82-7.42); RED BLOOD COUNT 3.07 mill/uL (4.70-6.10); RED CELL DISTRI WIDTH 16.3 % (11.5-15.5)
[2021-09-02] MEDS ORDERED: PROTONIX40 M2 PO (06:01)
[2021-09-02] MEDS ORDERED: PREDNISONE20 MG PO (06:01)
[2021-09-02] MEDS ORDERED: TAMSULOSIN HCL0.4 MG PO (06:03)
[2021-09-02 06:04] LABS: URINE NITRITE - DIPSTICK NEGATIVE (Negative)
[2021-09-02] MEDS ORDERED: TORSEMIDE20 M1 PO (06:04)
[2021-09-02] MEDS ORDERED: VITAMIN C500 M6 PO (06:04)
[2021-09-02] MEDS ORDERED: VITAMIN D3400 UNI2 PO (06:05)
[2021-09-02 06:08] LABS: ALBUMIN 3.9 g/dL (3.2-5.0); BILIRUBIN, TOTAL 0.4 mg/dL (0.0-1.4); BUN 26 mg/dL (8-23); BUN/CREATININE RATIO 30 (12-20 (CALC)); CHLORIDE 98 mmol/l (95-108); CREATININE 0.9 mg/dL (0.7-1.3); GFR FOR AFR.AMER. > 60 ML/MIN (>=60 (CALC)); GFR OTHER RACES > 60 ML/MIN (>=60 (CALC)); SGOT/AST 24 u/l (19-48); TOTAL PROTEIN 6.2 g/dL (6.3-8.2)
[2021-09-02 06:15] LABS: ALKALINE PHOSPHATASE 23 u/l (38-126); ANION GAP 9 (6-22 (CALC)); CARBON DIOXIDE 28 mmol/l (22-30); POTASSIUM 4.7 mmol/l (3.5-5.1); SODIUM 130 mmol/l (137-146)
[2021-09-02 06:19] LABS: MYOGLOBIN 33 ng/mL (0 - 121)
--- NOTE | 2021-09-02 07:39 | NUR ---
REASSESSED PATIENT PAIN AND COMFORT LEVEL. PAIN 10/10. ADMINISTERED MORPHINE. PATIENT IS MORE COMFORTABLE.
[2021-09-02] MEDS ORDERED: TYLENOL 8 HOUR650 MG (07:48)
[2021-09-02] MEDS ORDERED: NORVASC10 M1 PO (07:49)
--- NOTE | 2021-09-02 08:17 | NUR ---
A BREAKFAST TRAY FOR PATIENT AND ONE FOR THE SPOUSE HAS BEEN GIVEN. AWAITING FURTHER INSTRUCTIONS CONCERNING PROBABLE ADMISSION.
[2021-09-02] MEDS ORDERED: ATIVAN1 MG PO (09:43)
--- NOTE | 2021-09-02 09:44 | NUR ---
REPORT CALLED TO KAREN ON MS. TAKEN TO ROOM 260 ON TELEMETRY.
--- NOTE | 2021-09-02 12:00 | NUR ---
PATIENT ARRIVED TO ROOM 260 FROM ER AT 0945 , NURSE UNAVALIABLE TO ACCOMPANY PATIENT TO UNIT FROM ER, NO BEDSIDE REPORT, REPORT WAS CALLED TO THIS NURSE. ADMISSION ASSESSMENT AND DOCUMENTATION COMPLETED.
--- NOTE | 2021-09-02 14:22 | NUR ---
RECEIVED REPORT FROM FABIANA MARQUEZ.
--- NOTE | 2021-09-02 16:06 | NUR ---
PT SITTING ON BED WATCHING TV. PT ASSISTED WITH THE USE OF URINAL; 200 CC OF CLEAR, PALE YELLOW URINE. SAFETY PRECAUTIONS IN PLACE WITH CALL LIGHT IN REACH.
--- NOTE | 2021-09-02 18:44 | NUR ---
PT C/O LOWER BACK PAIN AND HIPS, LEVEL 8/10; ADMINISTERED PAIN MEDICATION PER EMAR. SAFETY PRECAUTIONS IN PLACE WITH CALL LIGHT IN REACH.
--- NOTE | 2021-09-02 20:00 | NUR ---
PATIENT IN BED WATCHING TV. ACCOMPANIED BY . RESPIRATION EVEN AND UNLABORED. ASSESMENT COMPLETED. PATIENT TAKES BIG PILLS WITH PUDDING. PATIENT HAS A 20 LFA SL PATENT AND FLUSH WELL. CALL LIGHT IN REACH BED IN LOWEST POSITION. CONTINUE TO MONITOR.
--- NOTE | 2021-09-03 | NUR ---
PATIENT EN BED RESTING WITH EYES CLOSED BREATHING EVEN AND UNLABORED. NO S/S OF DISTRESS NOTED. CALL LIGHT IN REACH AND BED IN LOWEST POSITION. CANTINUE TO MONITOR.
[2021-09-03 00:09] VITALS: BP 136/58
--- NOTE | 2021-09-03 04:40 | NUR ---
PATIENT IN BED RESTING RESPIRATION EVEN AND UNLABORED. POULTRY HUSBANDMAN AT BEDSIDE. PATIENT REPORTS PAIN TO HIS BACK 10/18. MEDICATED PER MAY AND PATIENT REQUEST. CALL LIGHT IN REACH AND BED IN LOWEST POSITION.
[2021-09-03 04:46] VITALS: BP 138/60
[2021-09-03 04:54] VITALS: BP 138/60
[2021-09-03 05:03] LABS: HEMATOCRIT 25.6 % (39.0-50.0); HEMOGLOBIN 8.4 g/dl (14.0-18.0); MEAN CORPUSCULAR HGB 31.7 pG CALC (26.0-32.0); MEAN CORPUSCULAR HGB CONC 32.8 g/dL CAL (32.0-36.0); RED BLOOD COUNT 2.65 mill/uL (4.70-6.10); RED CELL DISTRI WIDTH 17.1 % (11.5-15.5)
[2021-09-03 05:08] LABS: MEAN CELL VOLUME 96.6 fL CALC (80.0-100.0)
[2021-09-03 05:17] LABS: ANION GAP 8 (6-22 (CALC)); BUN 35 mg/dL (8-23); BUN/CREATININE RATIO 30 (12-20 (CALC)); CARBON DIOXIDE 28 mmol/l (22-30); CHLORIDE 100 mmol/l (95-108); CREATININE 1.2 mg/dL (0.7-1.3); GFR FOR AFR.AMER. > 60 ML/MIN (>=60 (CALC)); GFR OTHER RACES 58 ML/MIN (>=60 (CALC)); MAGNESIUM 2.1 mg/dL (1.6-2.3); POTASSIUM 4.8 mmol/l (3.5-5.1); SODIUM 131 mmol/l (137-146)
[2021-09-03 06:47] VITALS: BP 138/60
--- NOTE | 2021-09-03 06:50 | NUR ---
RECEIVED REPORT FROM DENISSE BAUTISTA.
--- NOTE | 2021-09-03 08:00 | NUR ---
PT SITTING ON HIGH PINEDA'S HAVING BREAKFAST; A&0 X2. EVEN AND UNLABORED RESPIRATIONS; CLEAR LUNG SOUNDS UPON AUSCULTATION. O2 @ 1L VIA NASAL CANNULA IN PLACE. TELEMETRY IN PLACE WITH LAST READING SR-76. IV SITE HEALTHY AND PATENT. ACTIVE BOWEL SOUNDS X4 QUADRANTS. SAFETY PRECAUTIONS IN PLACE WITH CALL LIGHT IN REACH.
[2021-09-03 10:00] VITALS: BP 134/57
[2021-09-03] MEDS ORDERED: AZITHROMYCIN500 MG PO (12:07)
[2021-09-03] MEDS ORDERED: OMNICEF300 M1 PO (12:07)
[2021-09-03] MEDS ORDERED: TESSALON PERLE100 MG PO (12:08)
--- NOTE | 2021-09-03 12:14 | NUR ---
PT IN BED HAVING LUNCH. PT'S AT BEDSIDE. NO DISTRESS OR PAIN NOTED. NO NEEDS AT THE TIME. SAFETY PRECAUTIONS IN PLACE WITH CALL LIGHT IN REACH.
--- NOTE | 2021-09-03 14:39 | NUR ---
Discharge instructions given. Patient verbalizes understanding of same. Discharged in stable condition via Wheelchair to Home with staff. All belongings sent with pt.
--- NOTE | 2021-09-03 14:45 | NUR ---
PT AND PT'S EDUCATED ON DC INSTRUCTIONS; THEY SHOWED UNDERSTANDING. IV SITE REMOVED: #20 LEFT FOREARM, CATHETER INTACT UPON REMOVAL. TELEMETRY BOX REMOVED, ER NOTIFIED OF SAME. PT LEFT @ 0698.
--- NOTE | 2021-09-05 09:49 | NUR ---
Pneumonia post discharge follow up call completed today, 09/05/21. Spoke to roberth . She statesw the patient is still weak, but improving slowly. Pt. is taking prescribed medication. He is experiencing some pain in his mouth, possibly thrush. Pt. had the same issues while hospitalized. Pt. has appts scheduled with PCP,secondary education professor, and label remover. The appts begin tomorrow, 09/06/21. No questions or concerns other than the issues with his mouth which they will address with tomorrow.
== END 2021-09-03 14:39 | disposition home or self-care (01) | DRG 194 ==
LOC: ED 05:26 → ED-I 08:20 → ED 08:42 → MS2 08:43
PROVIDERS: Emergency Medicine; ADMIT Hospitalist; ATTEND Hospitalist
DX: J18.9 Pneumonia, unspecified organism (principal); E87.1 Hypo-osmolality and hyponatremia; R09.02 Hypoxemia; I10 Essential (primary) hypertension; I25.10 Atherosclerotic heart disease of native coronary artery without angina pectoris; I77.6 Arteritis, unspecified; F41.9 Anxiety disorder, unspecified; Z95.2 Presence of prosthetic heart valve; Z20.822 Contact with and (suspected) exposure to COVID-19
CPT/HCPCS: J1650; Q9967

== ENCOUNTER 2021-09-29 09:45 | Observation (INO) | payer OTHER, MEDICARE ==
[2021-09-29] VITALS (14 sets, daily range): BP systolic 107–164; BP diastolic 65–89
[~2021-09-29] VITALS: Ht 177.8 cm; Wt 80.0 kg
[~2021-09-29 09:45] MED LIST changes: +AMLODIPINE PO; +ASPIRIN81 MG PO; +AZITHROMYCIN500 MG PO; +CARDURA1 MG PO; +FAMOTIDINE20 M1 PO; +NORVASC10 M1 PO; +OMNICEF300 M1 PO; +PEPCID20 MG PO; +PERCOCET 5/325M1 TAB PO; +PHOSPHA PO; +PREDNISONE20 MG PO; +PROTONIX40 M2 PO; +TAMSULOSIN HCL0.4 MG PO; +TESSALON PERLE100 MG PO; +TORSEMIDE20 M1 PO; +TYLENOL 8 HOUR650 MG; +VITAMIN C500 M6 PO; +VITAMIN D3400 UNI2 PO
--- NOTE | 2021-09-29 09:45 | NUR ---
PT TO ROOM VIA EMS STRETCHER
[2021-09-29 10:12] LABS: HEMATOCRIT 29.3 % (39.0-50.0); HEMOGLOBIN 9.8 g/dl (14.0-18.0); MEAN CELL VOLUME 96.4 fL CALC (80.0-100.0); MEAN CORPUSCULAR HGB 32.2 pG CALC (26.0-32.0); MEAN CORPUSCULAR HGB CONC 33.4 g/dL CAL (32.0-36.0); PLATELET COUNT 231 thou/uL (130-400); RED BLOOD COUNT 3.04 mill/uL (4.70-6.10); RED CELL DISTRI WIDTH 16.1 % (11.5-15.5)
--- NOTE | 2021-09-29 10:12 | NUR ---
RPT RECEIVED FROM MAXIMO JUNG. PT RESTING COMFORTABLY IN STRETCHER, NAD NOTED.
[2021-09-29 10:19] LABS: IMMATURE GRANULOCYTES 6.5 % (0.0-5.0); MANUAL DIFFERENTIAL YES
[2021-09-29 10:23] LABS: ALBUMIN 3.7 g/dL (3.2-5.0); ALKALINE PHOSPHATASE 38 u/l (38-126); ANION GAP 9 (6-22 (CALC)); BILIRUBIN, TOTAL 0.2 mg/dL (0.0-1.4); BUN 24 mg/dL (8-23); BUN/CREATININE RATIO 21 (12-20 (CALC)); CARBON DIOXIDE 27 mmol/l (22-30); CHLORIDE 99 mmol/l (95-108); CREATININE 1.1 mg/dL (0.7-1.3); GFR FOR AFR.AMER. > 60 ML/MIN (>=60 (CALC)); GFR OTHER RACES > 60 ML/MIN (>=60 (CALC)); SGOT/AST 25 u/l (19-48); SODIUM 131 mmol/l (137-146); TOTAL PROTEIN 5.9 g/dL (6.3-8.2)
[2021-09-29 10:37] LABS: BAND 4 % (0-8); NUCLEATED RED BLOOD CELL 2 /100WBC (0-1)
[2021-09-29 10:38] LABS: ACANTHOCYTES FEW; ANISOCYTOSIS FEW; PLATELET ESTIMATE NORMAL; POIKILOCYTOSIS FEW; POLYCHROMASIA FEW
[2021-09-29 10:49] LABS: URINE BILIRUBIN - DIPSTICK NEGATIVE (NEGATIVE); URINE BLOOD DIPSTICK NEGATIVE (NEGATIVE); URINE COLOR YELLOW; URINE GLUCOSE - DIPSTICK NEGATIVE (NEGATIVE); URINE KETONE NEGATIVE (NEGATIVE); URINE LEUK ESTERASE NEGATIVE (NEGATIVE); URINE PH 6.5 (4.5-8.0); URINE PROTEIN - DIPSTICK NEGATIVE (NEG-TRACE); URINE UROBILINOGEN - DIPSTICK 0.2 E.U./dL (0.2)
[2021-09-29 10:50] LABS: URINE NITRITE - DIPSTICK NEGATIVE (Negative)
[2021-09-29] MEDS ORDERED: SUCRALFATE1 GM PO (12:28)
[2021-09-29] MEDS ORDERED: PROTONIX20 M1 PO (12:28)
[2021-09-29] MEDS ORDERED: STOOL SOFT (12:29)
[2021-09-29] MEDS ORDERED: NYSTAT-RX500 MU XX (12:32)
[2021-09-29] MEDS ORDERED: ATIVAN1 M1 PO (12:34)
--- NOTE | 2021-09-29 13:57 | NUR ---
RPT GIVEN AT THE BEDSIDE TO LINDA SALCEDO. ALL QUESTIONS ADDRESSED, PT LEFT IN STABLE CONDITION, AT BEDSIDE. A&OX23
--- NOTE | 2021-09-29 14:00 | NUR ---
PT ARRIVED TO [facility] ROOM 271 VIA STRETCHER. BEDSIDE REPORT RECIEVED. PT A/OX3. ASSESSMENT COMPLETED. RESPIRATIONS EVEN AND UNLABORED ON ROOM AIR. LUNG SOUNDS CLEAR. HEART RHYTHM NORMAL. BOWEL SOUNDS ACTIVE. SCANT BM NOTED, COURTNEY CARE PROVIDED.REDNESS TO BUTTOCKS NOTED, PHOTOS OBTAINED. #18G LW FLUSHED, IVF STARTED. PT C/O OF 8/10 KNEE AND HIP PAIN. LUNCH TRAY ORDERED. PT DENIES OF ANY ADDITIONAL NEEDS. ALL SAFTEY PRECAUTIONS ARE IN PLACE WITH CALL LIGHT IN REACH.
--- NOTE | 2021-09-29 15:51 | NUR ---
Patient is screened for intervention and would benefit from PT consult if medical agrees
--- NOTE | 2021-09-29 16:16 | NUR ---
PT RESTING IN SEMI FOWLERS POSITION. RESPIRATIONS EVEN AND UNLABORED ON ROOM AIR. TELE MONITORING IN PLACE. IV SITE CARE PT DENIES OF ANY ADDITIONAL NEEDS. ALL SAFTEY PRECAUTIONS ARE IN PLACE WITH CALL LIGHT IN REACH. REMAINS AT BEDSIDE.
--- NOTE | 2021-09-29 20:40 | NUR ---
Pt's is leaving at this time. Pt sitting up in the bed denying and distress. Assessment completed at this time. He is asking for snack, provided. Medications reviwed, verbalized understanding and agreement. Safety precautions in place, call light at side, bed alarm is on. Pt forgetful at this time.
--- NOTE | 2021-09-29 21:40 | NUR ---
PT C/O MILD PAIN IN HIS BACK, ADMINISTERED TYLENOL PO ORDERS PROVIDE. SAFETY MEASURES IN PLACE.
--- NOTE | 2021-09-29 23:17 | NUR ---
PT CALLED REPORTING THAT HE "CAN'T BREATHE." OXYGEN SAT LEVELS 100% ON RA. HE REPORTS HAVING HAD PNEUMONIA ONE MONTH AGO AND HAS BEEN HAVING BREATHING TRTMENTS AT NIGHT FOR SOB. PHYSICIAN WAS NOTIFIED AND ORDERS RECEIVED. RESP CALLED.
--- NOTE | 2021-09-29 23:33 | NUR ---
RESP COMPLETED BREATHING TREATMENT. PT IS ASKING FOR MORE MILK AND CRACKERS. I EXPLAINED THAT THE MILK WORSENS MUCUS, VERBALIZED UNDERSTANDING. CRACKERS PROVIDED.
[2021-09-30] VITALS: BP 147/65
--- NOTE | 2021-09-30 03:54 | NUR ---
PT APPEARS TO BE RESTING COMFORTABLY, NO S/O DISTRESS NOTED AT THIS TIME.
[2021-09-30 04:00] VITALS: BP 147/65
--- NOTE | 2021-09-30 04:05 | NUR ---
Pt called to ask for a "nerve pill". Meidcated with ativan at this time. IV fluids replenished also at this time.
[2021-09-30 07:23] VITALS: BP 166/68
--- NOTE | 2021-09-30 07:45 | NUR ---
RECIEVED REPORT. PT A/OX3. ASSESSMENT COMPLETED. REPSIRATIONS EVEN AND UNLABORED ON ROOM AIR. LUNG SOUNDS CLEAR.HEART RHYTHM NORMAL. BOWEL SOUNDS ACTIVE. #18G LW INFUSING WITH FLUIDS. PT REQUEST FOR FLUIDS TO BE DISCONNECTED. PT EDUCATED ON NEED FOR FLUIDS, PT CONTINUES TO REFUSE FLUIDS. IVF DISCONNECTED AT THIS TIME. SKIN INTACT. PT COMPLAINS OF PAIN IN LEFT LEG, TO BE MEDICATED PER EMAR. PT DENIES OF ANY ADDITIONAL NEEDS. ALL SAFTEY PRECAUTIONS ARE IN PLACE WITH CALL LIGT IN REACH
[2021-09-30 11:24] LABS: HEMATOCRIT 29.8 % (39.0-50.0); IMMATURE GRANULOCYTES 2.3 % (0.0-5.0); MEAN CELL VOLUME 96.8 fL CALC (80.0-100.0); MEAN CORPUSCULAR HGB 32.5 pG CALC (26.0-32.0); MEAN CORPUSCULAR HGB CONC 33.6 g/dL CAL (32.0-36.0); NEUT# 7.39 thou/uL (1.82-7.42); RED BLOOD COUNT 3.08 mill/uL (4.70-6.10); RED CELL DISTRI WIDTH 16.3 % (11.5-15.5)
[2021-09-30 11:36] LABS: ANION GAP 7 (6-22 (CALC)); BUN 19 mg/dL (8-23); BUN/CREATININE RATIO 23 (12-20 (CALC)); CARBON DIOXIDE 29 mmol/l (22-30); CHLORIDE 100 mmol/l (95-108); CREATININE 0.8 mg/dL (0.7-1.3); GFR FOR AFR.AMER. > 60 ML/MIN (>=60 (CALC)); GFR OTHER RACES > 60 ML/MIN (>=60 (CALC)); POTASSIUM 4.3 mmol/l (3.5-5.1); SODIUM 131 mmol/l (137-146)
[2021-09-30 11:37] VITALS: BP 138/68
--- NOTE | 2021-09-30 11:53 | NUR ---
PT RESTING IN SEMI FOWLERS POSITIONS. IV SITE PATENT. TELE MONITORING IN PLACE. PT DENIES OF ANY ADDITIONAL NEEDS AT THIS TIME. ALL SAFEY PRECAUTIONS ARE IN PLACE WITH CALL LIGHT IN REACH.
--- NOTE | 2021-09-30 12:30 | NUR ---
PT AND EDUCATED ON DC INSTRUCTIONS AND CONTINUING MEDS. VERBALZIED UNDERSTANDING. IV REMOVED. TLE REMOVED, ER INFORMED.
--- NOTE | 2021-09-30 14:02 | NUR ---
Discharge instructions given. Patient verbalizes understanding of same. Discharged in stable condition via Wheelchair to Home with staff. All belongings sent with pt.
== END 2021-09-30 13:07 | disposition home or self-care (01) | DRG 312 ==
LOC: ED 09:45 → ED-I 11:00 → ED 11:30 → MS2 11:31
PROVIDERS: Family Medicine; Internal Medicine; ADMIT Internal Medicine; ATTEND Internal Medicine
DX: R55 Syncope and collapse (principal); R53.83 Other fatigue; E87.1 Hypo-osmolality and hyponatremia; I10 Essential (primary) hypertension; D64.9 Anemia, unspecified; I25.10 Atherosclerotic heart disease of native coronary artery without angina pectoris; I77.6 Arteritis, unspecified; F41.9 Anxiety disorder, unspecified; Z20.822 Contact with and (suspected) exposure to COVID-19
CPT/HCPCS: J1650

== ENCOUNTER 2021-11-08 05:48 | Emergency (ER) | payer OTHER, MEDICARE ==
[~2021-11-08] VITALS: Ht 177.8 cm; Wt 81.4 kg
[2021-11-08] VITALS (25 sets, daily range): BP systolic 113–154; BP diastolic 57–72
[~2021-11-08 05:48] MED LIST changes: +ATIVAN1 M1 PO; +NYSTAT-RX500 MU XX; +PROTONIX20 M1 PO; +STOOL SOFT; +SUCRALFATE1 GM PO
[2021-11-08 06:39] LABS: IMMATURE GRANULOCYTES 0.7 % (0.0-5.0); MEAN CELL VOLUME 92.6 fL CALC (80.0-100.0); MEAN CORPUSCULAR HGB CONC 34.5 g/dL CAL (32.0-36.0); NEUT# 6.1 thou/uL (1.82-7.42); RED BLOOD COUNT 4.47 mill/uL (4.70-6.10); RED CELL DISTRI WIDTH 14.4 % (11.5-15.5)
[2021-11-08 06:41] LABS: HEMATOCRIT 41.4 % (39.0-50.0); HEMOGLOBIN 14.3 g/dl (14.0-18.0)
[2021-11-08 06:55] LABS: URINE BILIRUBIN - DIPSTICK NEGATIVE (NEGATIVE); URINE BLOOD DIPSTICK TRACE-INTACT (NEGATIVE); URINE COLOR YELLOW; URINE GLUCOSE - DIPSTICK NEGATIVE (NEGATIVE); URINE KETONE NEGATIVE (NEGATIVE); URINE LEUK ESTERASE NEGATIVE (NEGATIVE); URINE NITRITE - DIPSTICK NEGATIVE (Negative); URINE PROTEIN - DIPSTICK TRACE mg/dL (NEG-TRACE); URINE SPECIFIC GRAVITY 1.015; URINE UROBILINOGEN - DIPSTICK 0.2 E.U./dL (0.2)
[2021-11-08 06:56] LABS: ALBUMIN 3.6 g/dL (3.2-5.0); BUN 18 mg/dL (8-23); BUN/CREATININE RATIO 15 (12-20 (CALC)); CARBON DIOXIDE 27 mmol/l (22-30); CHLORIDE 96 mmol/l (95-108); CREATININE 1.2 mg/dL (0.7-1.3); GFR FOR AFR.AMER. > 60 ML/MIN (>=60 (CALC)); GFR OTHER RACES 58 ML/MIN (>=60 (CALC)); SGOT/AST 25 u/l (19-48); SODIUM 130 mmol/l (137-146); TOTAL PROTEIN 6.2 g/dL (6.3-8.2)
[2021-11-08 06:58] LABS: ANION GAP 11 (6-22 (CALC)); POTASSIUM 3.7 mmol/l (3.5-5.1)
[2021-11-08 06:59] LABS: ALKALINE PHOSPHATASE 61 u/l (38-126); BILIRUBIN, TOTAL 0.4 mg/dL (0.0-1.4)
[2021-11-08 07:08] LABS: MYOGLOBIN 62 ng/mL (0 - 121)
[2021-11-08] MEDS ORDERED: OXYCOD-APAP1 TA1 PO (10:33)
[2021-11-08] MEDS ORDERED: TRAZODONE PO (10:34)
[2021-11-08] MEDS ORDERED: OMNI-PAC300 MG PO (12:53)
[2021-11-08] MEDS ORDERED: ZITHROMAX Z-PA250 MG PO (12:53)
== END 2021-11-08 13:16 | disposition home or self-care (01) | DRG 195 ==
LOC: ED 05:48
PROVIDERS: Emergency Medicine
DX: J18.9 Pneumonia, unspecified organism (principal); I10 Essential (primary) hypertension; Z20.822 Contact with and (suspected) exposure to COVID-19
CPT/HCPCS: J1100; Q9967

== ENCOUNTER 2022-01-29 15:00 | Observation (INO) | payer OTHER, MEDICARE ==
[~2022-01-29] VITALS: Ht 177.8 cm; Wt 80.4 kg
[2022-01-29] VITALS (12 sets, daily range): BP systolic 127–179; BP diastolic 66–89
[~2022-01-29 15:00] MED LIST changes: +OMNI-PAC300 MG PO; +OXYCOD-APAP1 TA1 PO; +TRAZODONE PO; +ZITHROMAX Z-PA250 MG PO
--- NOTE | 2022-01-29 15:21 | NUR ---
UPON SPEAKING WITH , SHE INDICATES PT HAD SYNCOPAL EPISODE ON TOILET WITH BM ATTEMPT POST ENEMA AND MILK OF MAG. REPORTS THIS HAPPENING PRIOR
--- NOTE | 2022-01-29 15:21 | NUR ---
EMS REPORTS GENERALIZED WEAKNESS AT HOME TODAY MORE THAN USUAL. NO DEFICITS. PT ALERT AND ORIENTED X 3 UPON ARRIVAL. MEND EXAM NEG
[2022-01-29 15:35] LABS: IMMATURE GRANULOCYTES 0.2 % (0.0-5.0); MEAN CELL VOLUME 88.7 fL CALC (80.0-100.0); MEAN CORPUSCULAR HGB 30.4 pG CALC (26.0-32.0); MEAN CORPUSCULAR HGB CONC 34.3 g/dL CAL (32.0-36.0); NEUT# 8.03 thou/uL (1.82-7.42); RED BLOOD COUNT 3.81 mill/uL (4.70-6.10); RED CELL DISTRI WIDTH 14.3 % (11.5-15.5)
[2022-01-29 15:39] LABS: HEMATOCRIT 33.8 % (39.0-50.0); HEMOGLOBIN 11.6 g/dl (14.0-18.0)
[2022-01-29] MEDS ORDERED: OXYCODO-APAP1 TA2 PO (15:48)
[2022-01-29 16:13] LABS: ALBUMIN 3.8 g/dL (3.2-5.0); BILIRUBIN, TOTAL 0.3 mg/dL (0.0-1.4); CREATININE 1.4 mg/dL (0.7-1.3); MAGNESIUM 2.4 mg/dL (1.6-2.3); POTASSIUM 4.3 mmol/l (3.5-5.1)
--- NOTE | 2022-01-29 16:13 | NUR ---
PATIENT RESTING IN BED WITH EYES CLOSED. AT BESIDE. ICE CHIPS PROVIDED REQUESTED. NO DSISTRESS OR COMPLAINTS AT THIS TIME
[2022-01-29 16:43] LABS: URINE BILIRUBIN - DIPSTICK NEGATIVE (NEGATIVE); URINE BLOOD DIPSTICK SMALL (NEGATIVE); URINE COLOR YELLOW; URINE GLUCOSE - DIPSTICK NEGATIVE (NEGATIVE); URINE KETONE NEGATIVE (NEGATIVE); URINE PROTEIN - DIPSTICK TRACE mg/dL (NEG-TRACE); URINE UROBILINOGEN - DIPSTICK 0.2 E.U./dL (0.2)
[2022-01-29 16:43] LABS: PROTHROMBIN TIME 10.1 SECONDS (9.0-12.5)
[2022-01-29 17:03] LABS: URINE LEUK ESTERASE LARGE (NEGATIVE); URINE NITRITE - DIPSTICK NEGATIVE (Negative)
[2022-01-29 17:04] LABS: URINE WBC >100 WBC/hpf (0-5)
--- NOTE | 2022-01-29 17:33 | NUR ---
PATIENT RESTING IN BED WITH EYES CLOSED. AT BEDSIDE. DISCUSSED ADMISSION AND REASONING. NO DISTRESS NOTED
--- NOTE | 2022-01-29 18:20 | NUR ---
PT TRANSPORTED FROM ED TO UNIT @ 181 VIA STRETCHWER AND TRANSRERRED TO BED WITH ASSIST OF 4 STAFF. ALERT AND ORIENTED X 3 C/O GENERALISED ACHING CHRONIC PAIN @ 10/18, TELE MONITOR IN PLACE, ORIENTED TO ROOM AND CALL CAMPOVERDE, SETTLED IN BED, SPOUSE AT BEDSIDE.
--- NOTE | 2022-01-29 18:22 | NUR ---
BEDSIDE SHIFT REPORT GIVEN TO DARIELA. PATIENT SETTLED WITH AT BEDSIDE.
--- NOTE | 2022-01-29 19:20 | NUR ---
REPORT RECIEVED FROM Baldo MAGAÑA RN.
--- NOTE | 2022-01-29 19:45 | NUR ---
REMIANS AT BEDSIDE. ASSESSMENT COMPLETED AT THIS TIME. PATIENTS ONLY REQUEST IS PAIN MEDICATION FOR CHRONIC PAIN. EXPLAINED TO PATIENT AND . DAY RN COMPLETING MED REC AND WILL BE MADE AWARE ONCE IT IS UP TO DATE.
[2022-01-29] MEDS ORDERED: TORSEMIDE20 M1 PO (19:57)
[2022-01-29] MEDS ORDERED: TRAZODONE50 MG PO (20:03)
--- NOTE | 2022-01-29 20:36 | NUR ---
SPOUSE PLACE CONDOM CATHETER STATING PT USES IT AT HS, SHE IS INSTRUMENTAL IN HIS CARE AND REQUESTING TO STAY OVERNIGHT, ADVISED TO ADDRESS WITH NIGHT RN
--- NOTE | 2022-01-29 21:09 | NUR ---
MEDICATIONS AMDINISTERED PER MAR SEE MAR.
[2022-01-30 00:02] VITALS: BP 134/66
--- NOTE | 2022-01-30 00:30 | NUR ---
PATIENT RESTING WITH AT BEDSIDE. PATIENT FINISHED WITH HIS MEAL. OFFERS NO CURRENT COMPLAINTS OR CONCERNS AT THIS TIME. CALL LIGHT AND BEDSIDE TABLE WITHN REACH.
[2022-01-30 03:14] LABS: CREATININE 1.4 mg/dL (0.7-1.3); MAGNESIUM 2.2 mg/dL (1.6-2.3); POTASSIUM 4.3 mmol/l (3.5-5.1)
[2022-01-30 04:24] VITALS: BP 158/59
--- NOTE | 2022-01-30 04:40 | NUR ---
PATIENT MEDICATED FOR PAIN. STATES IT IS EVERYWHERE AND HE IS RATING IT 7/10.
[2022-01-30 06:30] VITALS: BP 149/68
--- NOTE | 2022-01-30 07:00 | NUR ---
RECEIVE REPORT FROM YUMIKO JUNG.
--- NOTE | 2022-01-30 08:00 | NUR ---
PATIENT ALERT AND ORIENTED X3. RESTING IN BED ACCOMPANIED FOR AT BED SIDE. PATIENT STABLE AT THIS TIME. PATIENT IS EDUCATED ABOUD MEDICATIONS AND NURSING PLAN FOR TODAY. PATIENT AND REFER UNDERSTAND.
[2022-01-30 08:20] VITALS: BP 149/68
[2022-01-30] MEDS ORDERED: OMNICEF300 MG PO (09:22)
--- NOTE | 2022-01-30 10:00 | NUR ---
Discharge instructions given. Patient verbalizes understanding of same. Discharged in stable condition via Wheelchair to Home with staff. All belongings sent with pt.
== END 2022-01-30 10:00 | disposition home or self-care (01) | DRG 312 ==
LOC: ED 15:00 → ED-I 15:49 → ED 15:49 → ED-I 17:20 → ED 17:38 → MS2 17:39
PROVIDERS: Physician Assistant Surgical; ADMIT Internal Medicine; ATTEND Internal Medicine
DX: R55 Syncope and collapse (principal); N39.0 Urinary tract infection, site not specified; E87.1 Hypo-osmolality and hyponatremia; I10 Essential (primary) hypertension; I77.6 Arteritis, unspecified; B96.5 Pseudomonas (aeruginosa) (mallei) (pseudomallei) as the cause of diseases classified elsewhere; Z95.2 Presence of prosthetic heart valve
CPT/HCPCS: J1650

== ENCOUNTER 2022-02-23 17:05 | Emergency (ER) | payer OTHER, MEDICARE ==
[~2022-02-23] VITALS: Ht 177.8 cm; Wt 78.2 kg
[~2022-02-23 17:05] MED LIST changes: +OXYCODO-APAP1 TA2 PO; +TRAZODONE50 MG PO
[2022-02-23 18:14] VITALS: BP 124/86
== END 2022-02-23 21:44 | disposition home or self-care (01) | DRG 312 ==
LOC: ED 17:05
DX: R55 Syncope and collapse (principal); I10 Essential (primary) hypertension; Z79.01 Long term (current) use of anticoagulants; Z95.2 Presence of prosthetic heart valve; W18.30XA Fall on same level, unspecified, initial encounter

== ENCOUNTER 2024-04-30 21:31 | Emergency (ER) | payer OTHER, MEDICARE ==
[~2024-04-30] VITALS: Ht 177.8 cm; Wt 98.0 kg
[~2024-04-30 21:31] MED LIST changes: +ATORVASTATIN CA20 MG PO; +TRAMADOL HYDROC50 M1 PO
[2024-04-30] MEDS ORDERED: IPRATROPIUM-Albuterol 0.5MG-2.5MG/3 ML NEB ONE ×2 (21:45)
[2024-04-30] MEDS ORDERED: SODIUM CHLORIDE 0.9% 1,000 ML IV ONE ×2 (21:45→22:45)
[2024-04-30] MEDS ORDERED: ALBUTEROL SULFATE 2.5 MG VIAL IN ONE (21:45)
[2024-04-30 22:10] LABS: BASO% 0.5 % (0-3); EOS% 1.7 % (0-8); HEMATOCRIT 35.8 % (39.0-50.0); HEMOGLOBIN 11.9 g/dl (14.0-18.0); IMMATURE GRANULOCYTES 0.4 % (0.0-5.0); LYMPH% 3.1 % (15-41); MEAN CORPUSCULAR HGB 32.5 pG CALC (26.0-32.0); MEAN CORPUSCULAR HGB CONC 33.2 g/dL CAL (32.0-36.0); MONO% 13.6 % (2-13); NEUT# 6.29 thou/uL (1.82-7.42); NEUT% 80.7 % (42-76); RED BLOOD COUNT 3.66 mill/uL (4.70-6.10); RED CELL DISTRI WIDTH 13.6 % (11.5-15.5)
[2024-04-30 22:11] LABS: MEAN CELL VOLUME 97.8 fL CALC (80.0-100.0)
[2024-04-30 22:21] LABS: ALBUMIN 4.4 g/dL (3.2-5.0); BILIRUBIN, TOTAL 0.4 mg/dL (0.2-1.3); CREATININE 1.5 mg/dL (0.7-1.3); POTASSIUM 4.7 mmol/l (3.5-5.1); TOTAL PROTEIN 6.9 g/dL (6.3-8.2)
[2024-04-30 23:00] VITALS: BP 131/63
[2024-04-30 23:15] VITALS: BP 129/60
[2024-04-30 23:30] VITALS: BP 123/52
[2024-04-30 23:45] VITALS: BP 137/64
[2024-04-30] MEDS ORDERED: ACETAMINOPHEN 500 MG TAB PO ONE (23:50)
[2024-05-01 00:05] LABS: URINE BILIRUBIN - DIPSTICK Negative (NEGATIVE); URINE BLOOD DIPSTICK Negative (NEGATIVE); URINE COLOR Yellow; URINE GLUCOSE - DIPSTICK Negative (NEGATIVE); URINE KETONE Negative (NEGATIVE); URINE LEUK ESTERASE Negative (NEGATIVE); URINE NITRITE - DIPSTICK Negative (Negative); URINE PH 5.5 (4.5-8.0); URINE PROTEIN - DIPSTICK 30 mg/dL (NEG-TRACE); URINE UROBILINOGEN - DIPSTICK 0.2 E.U./dL (0.2)
[2024-05-01 00:15] VITALS: BP 133/61
[2024-05-01] MEDS ORDERED: ALBUTEROL SULFATE 2.5 MG VIAL IN ONE (00:20)
[2024-05-01] MEDS ORDERED: OSELTAMIVIR PHOSPHATE 75 MG/TAB CAP PO ONE (00:25)
[2024-05-01 00:31] VITALS: BP 120/52
[2024-05-01 00:45] VITALS: BP 126/55
[2024-05-01 01:00] VITALS: BP 123/61
[2024-05-01 01:15] VITALS: BP 111/84
[2024-05-01] MEDS ORDERED: TAMIFLU30 MG PO (01:38)
[2024-05-01 01:40] VITALS: BP 111/84
== END 2024-05-01 01:40 | disposition home or self-care (01) | DRG 195 ==
LOC: ED 21:31
PROVIDERS: Family Medicine
DX: J10.1 Influenza due to other identified influenza virus with other respiratory manifestations (principal); I10 Essential (primary) hypertension; Z95.2 Presence of prosthetic heart valve; Z20.822 Contact with and (suspected) exposure to COVID-19
CPT/HCPCS: J0696

== ENCOUNTER 2024-05-05 13:16 | Emergency (ER) | payer OTHER, MEDICARE ==
[~2024-05-05] VITALS: Ht 177.8 cm; Wt 84.5 kg
[~2024-05-05 13:16] MED LIST changes: +TAMIFLU30 MG PO
[2024-05-05 15:45] LABS: BASO% 0.7 % (0-3); EOS% 2.2 % (0-8); HEMATOCRIT 34.5 % (39.0-50.0); IMMATURE GRANULOCYTES 0.2 % (0.0-5.0); LYMPH% 18.4 % (15-41); MEAN CELL VOLUME 100.3 fL CALC (80.0-100.0); MEAN CORPUSCULAR HGB CONC 31.9 g/dL CAL (32.0-36.0); MONO% 20.8 % (2-13); NEUT# 2.66 thou/uL (1.82-7.42); NEUT% 57.7 % (42-76); RED BLOOD COUNT 3.44 mill/uL (4.70-6.10); RED CELL DISTRI WIDTH 13.8 % (11.5-15.5)
[2024-05-05 15:57] LABS: ALBUMIN 3.9 g/dL (3.2-5.0); ALKALINE PHOSPHATASE 55 u/l (38-126); ANION GAP 11 (6-22 (CALC)); BILIRUBIN, TOTAL 0.5 mg/dL (0.2-1.3); BUN 22 mg/dL (8-23); BUN/CREATININE RATIO 16 (12-20 (CALC)); CARBON DIOXIDE 25 mmol/l (22-30); CHLORIDE 104 mmol/l (95-108); CREATININE 1.3 mg/dL (0.7-1.3); ESTIMATED GFR 55 ML/MIN (>=90 (CALC)); LIPASE 53 u/l (23-300); POTASSIUM 4.4 mmol/l (3.5-5.1); SGOT/AST 56 u/l (19-48); SODIUM 136 mmol/l (137-146); TOTAL PROTEIN 6.5 g/dL (6.3-8.2)
[2024-05-05] MEDS ORDERED: ONDANSETRON HCl 4 MG/2 ML SDV IV ONE (17:55)
[2024-05-05] MEDS ORDERED: MORPHINE SULFATE 4 MG/ML VIAL IV ONE (17:55)
[2024-05-05] MEDS ORDERED: ONDANSETRON 4 MG/TAB ODT PO ONE (18:15)
[2024-05-05] MEDS ORDERED: MORPHINE SULFATE 4 MG/ML VIAL IM ONE (18:15)
[2024-05-05] MEDS ORDERED: oxyCODONE 5MG/ ACETAMINOPHEN 325MG TAB PO ONE (19:40)
[2024-05-05] MEDS ORDERED: AZITHROMYCIN 500 MG in SODIUM CHLORIDE 0.9% 500 ML IV ONE (19:50)
[2024-05-05] MEDS ORDERED: cefTRIAXone SODIUM 2 GM in SODIUM CHLORIDE 0.9% 100 ML IV ONE (19:50)
[2024-05-05 21:20] VITALS: BP 146/83
== END 2024-05-05 21:20 | disposition short-term general hospital (02) | DRG 195 ==
LOC: ED 13:16 → ED-I 19:40 → ED 21:20
PROVIDERS: Family Medicine
DX: J18.9 Pneumonia, unspecified organism (principal); R09.1 Pleurisy; I11.0 Hypertensive heart disease with heart failure; I50.9 Heart failure, unspecified; I25.10 Atherosclerotic heart disease of native coronary artery without angina pectoris; Z88.8 Allergy status to other drugs, medicaments and biological substances
CPT/HCPCS: J0456; J0696